=== PATIENT | female | born 1960 | race Caucasian/White ===

== ENCOUNTER 2017-02-08 03:29 | Emergency (ER) | payer OTHER ==
[2017-02-08 03:52] VITALS: BMI 37.8
[2017-02-08] MEDS ORDERED: ACETAMINOPHEN 1000 MG/100 ML VIAL (NON FORMULARY) IVPB ONE (06:21)
[2017-02-08] MEDS ORDERED: FAMOTIDINE 20 MG/50 ML IVPB 50 ML IVPB ONE ×2 (06:21→06:42)
[2017-02-08] MEDS ORDERED: SODIUM CHLORIDE 0.9% 1000 ML INFUS.BAG IV ONE (06:21)
[2017-02-08] MEDS ORDERED: ACETAMINOPHEN INJECTION 100 ML IVPB ONE (06:42)
--- NOTE | 2017-02-08 06:48 | PDOC ---
History of Present Illness - General Chief Complaint: Pain Stated Complaint: ABDOMINAL PAIN Time Seen by Provider: 02/08/17 05:59 History Source: Patient Exam Limitations: No Limitations - History of Present Illness Initial Comments: 02/08/17 06:41 Patient is a 36 y.o female with history of gastritis, arthritis, hypertension, hypothyroid, complaining of epigastric pain which radiates started at 1 AM. Pain is 10/10 gradual onset of squeezing, and intermittent, which is associatedpain finger with nausea and vomiting which started about 2 AM. Denies any history of pancreatitis. States she has a h/o ulcer which was diagnosed 4 years ago for which omeprazole was given. Last time used was 3 months ago There are no alleviating factors, (did not take any omeprazole), no aggravating factors. Had an endoscopy for vomiting blood 9 years ago with no findings. denies fever, chills, diarrhea. No fam h/o aneurysm. PMD: [facility] at [address] PMHX: as above PSochx: neg etoh, drug, cig PFamHx: noncontributory ALL: ASA GENERAL/CONSTITUTIONAL: [No fever or chills. No weakness. No weight change.] HEAD, EYES, EARS, NOSE AND THROAT: [No change in vision. No ear pain or discharge. No sore throat.] CARDIOVASCULAR: [No chest pain or shortness of breath.] RESPIRATORY: [No cough, wheezing, or hemoptysis.] GASTROINTESTINAL: (+) nausea, vomiting, (-) diarrhea or constipation. No rectal bleeding.] GENITOURINARY: [No dysuria, frequency, or change in urination.] MUSCULOSKELETAL: [No joint or muscle swelling or pain. No neck or back pain.] SKIN AND BREASTS: [No rash or easy bruising.] NEUROLOGIC: [No headache, vertigo, loss of consciousness, or loss of sensation.] PSYCHIATRIC: [No depression or anxiety.] ENDOCRINE: [No increased thirst. No abnormal weight change.] HEMATOLOGIC/LYMPHATIC: [No anemia, easy bleeding, or history of blood clots.] ALLERGIC/IMMUNOLOGIC: [No hives or skin allergy. No latex allergy.] GENERAL: [The patient is awake, alert, and fully oriented, in moderate painful distress.] HEAD: [Normal with no signs of trauma.] EYES: [Pupils equal, round and reactive to light, extraocular movements intact, sclera anicteric, conjunctiva clear.] ENT: [Ears normal, nares patent, oropharynx clear without exudates. Moist mucous membranes.] NECK: [Normal range of motion, supple without lymphadenopathy, JVD, or masses.] LUNGS: [Breath sounds equal, clear to auscultation bilaterally. No wheezes, and no crackles.] HEART: [Regular rate and rhythm, normal S1 and S2 without murmur, rub.] ABDOMEN: [Soft, (+) tenderness in the epigastrium, normoactive bowel sounds. No guarding, no rebound. No masses.] EXTREMITIES: [Normal range of motion, no edema. No clubbing or cyanosis. No cords, erythema, or tenderness.] NEUROLOGICAL: [Cranial nerves II through XII grossly intact. Normal speech, normal gait.] PSYCH: [Normal mood, normal affect.] SKIN: [Warm, Dry, normal turgor, no rashes or lesions noted.] Past History - Past Medical History Allergies/Adverse Reactions: Allergies Allergy/AdvReac Type Severity Reaction Status Date / Time aspirin AdvReac Mild Verified 02/08/17 03:53 Home Medications: Ambulatory Orders Amlodipine Besylate [Norvasc] 10 mg PO DAILY 07/11/12 Gabapentin [Neurontin] 300 mg PO TID 07/11/12 Levothyroxine [Synthroid] 88 mcg PO DAILY 07/11/12 Anemia: No Asthma: No Cancer: No HTN: Yes Thyroid Disease: Yes - Immunization History Immunization Up to Date: No - Psycho/Social/Smoking Cessation Hx Anxiety: No Suicidal Ideation: No Smoking Status: No Smoking History: Never smoked Have you smoked in the past 12 months: No Number of Cigarettes Smoked Daily: 0 Information on smoking cessation initiated: No Hx Alcohol Use: No Drug/Substance Use Hx: No Substance Use Type: None *Physical Exam - Vital Signs Last Vital Signs Temp Pulse Resp BP Pulse Ox 97.6 F 72 19 143/97 100 02/08/17 03:45 02/08/17 03:45 02/08/17 03:45 02/08/17 03:45 02/08/17 03:45 ED Treatment Course - LABORATORY CBC & Chemistry Diagram: 02/08/17 06:39 02/08/17 06:39 Medical Decision Making - Medical Decision Making 02/08/17 06:49 Patient is a 36 y.o female with history of gastritis, arthritis, hypertension, hypothyroid, complaining of epigastric pain which radiates started at 1 AM. DDx incl but not limited to pancreatitis, gastritis, gastric ulcers, IN will get labs including trop, EKG IV fluids, morphine 2 mg IV, Pepcid 20 mg IV, Zofran 4 mg IV. Will endorse to HOLGER Lui pending labs and disposition. *DC/Admit/Observation/Transfer Diagnosis at time of Disposition: Epigastric pain - Discharge Dispostion Condition at time of disposition: Fair
[2017-02-08 06:51] LABS: BASOPHIL 0.4 % (0-2.0); EOSINOPHIL 0.3 % (0-4.5); MCH 27.9 pg (25.7-33.7); MCHC 32.4 g/dl (32.0-36.0); MEAN PLT VOLUME 10.2 fl (7.5-11.1); NEUTROPHILS 79.1 % (42.8-82.8); PLATELET COUNT 180 K/MM3 (134-434); RDW 15.7 % (11.6-15.6); WHITE BLOOD COUNT 10.5 K/mm3 (4.0-10.0)
[2017-02-08 07:07] LABS: ALBUMIN 3.8 g/dl (3.4-5.0); ANION GAP 8 (8-16); CALCIUM 9.3 mg/dL (8.5-10.1); CO2 26 mmol/L (21-32); COCKROFT - GAULT 141.355; CREATININE 0.7 mg/dL (0.55-1.02); GLUCOSE,RANDOM 109 mg/dL (74-106); SGOT/AST 33 U/L (15-37); SGPT/ALT 25 U/L (12-78)
[2017-02-08 07:09] LABS: ALK PHOS 114 U/L (45-117); BILIRUBIN,TOTAL 0.3 mg/dL (0.2-1.0); TOT PROT 7.8 g/dl (6.4-8.2)
--- NOTE | 2017-02-08 07:41 | PDOC ---
*Physical Exam - Vital Signs Last Vital Signs Temp Pulse Resp BP Pulse Ox 98.0 F 61 16 158/75 100 02/08/17 07:37 02/08/17 07:37 02/08/17 07:37 02/08/17 07:37 02/08/17 07:37 Heart Score/ECG Review - ECG Intrepretation Rhythm: Regular Rhythm (sinus bradycardia. left atrial enlargement. LVH) ED Treatment Course - LABORATORY CBC & Chemistry Diagram: 02/08/17 06:39 02/08/17 06:39 - ADDITIONAL ORDERS Additional order review: Laboratory Results 02/08/17 06:39 Sodium 143 Potassium 3.5 Chloride 109 H Carbon Dioxide 26 Anion Gap 8 BUN 17 Creatinine 0.7 D Creat Clearance w eGFR > 60 Random Glucose 109 H D Calcium 9.3 Total Bilirubin 0.3 D AST 33 D ALT 25 Alkaline Phosphatase 114 Total Protein 7.8 Albumin 3.8 Lipase 161 02/08/17 06:39 RBC 4.32 MCV 86.0 MCHC 32.4 RDW 15.7 H MPV 10.2 Neutrophils % 79.1 D Lymphocytes % 15.1 D Monocytes % 5.1 Eosinophils % 0.3 Basophils % 0.4 - Medications Given in the ED: ED Medications Discontinued Medications Generic Name Dose Route Start Last Admin Trade Name Freq PRN Reason Stop Dose Admin Acetaminophen 1,000 mg 02/08/17 06:21 02/08/17 06:45 Ofirmev Injection - IVPB 02/08/17 06:22 1,000 mg ONCE ONE Administration Famotidine/Sodium Chloride 50 mls @ 100 mls/hr 02/08/17 06:21 02/08/17 06:46 Pepcid 20 Mg Premixed Ivpb - IVPB 02/08/17 06:50 100 mls/hr ONCE ONE Administration Sodium Chloride 1,000 ml 02/08/17 06:21 02/08/17 06:41 Normal Saline - IV 02/08/17 06:22 1,000 ml ONCE ONE Administration Medical Decision Making - Medical Decision Making 02/08/17 07:41 Patient received in sign out with complaints of epigastric pain associated with nausea that began this morning. Patient states history of PUD and gastritis and supposed take Prilosec as needed which she states did not take when symptoms began and came to the ER for further evaluation. Patient denies chest pain, shortness of breath, cough, fever, chills, vomiting, diarrhea or constipation. Patient denies alcohol intake, history of pancreatitis, or history of gallstones. Patient pending labs and states is feeling better after receiving Pepcid 02/08/17 08:05 Laboratory Tests 02/08/17 06:39 Creatine Kinase 172 Troponin I < 0.02 Patient will be discharged home to continue taking her Prilosec. Patient to follow-up with her PCP and stator tester *DC/Admit/Observation/Transfer Diagnosis at time of Disposition: Epigastric pain - Discharge Dispostion Disposition: HOME Condition at time of disposition: Improved - Referrals Referrals: STAFF,NOT ON [Primary Care Provider] - - Patient Instructions Printed Discharge Instructions: DI for Epigastric Pain Additional Instructions: Please take your Prilosec daily and to follow-up with your PCP and/or your stator tester. Please return to ED if symptoms worsen. Otherwise avoid spicy greasy food and drink plenty of fluids - Post Discharge Activity
[2017-02-08 07:53] LABS: TROPONIN I < 0.02 ng/ml (0.00-0.05)
[2017-02-08 08:47] VITALS: BP 134/78; PULSE 76; TEMP 98.1
--- NOTE | 2017-02-08 13:29 | EKG ---
Test Reason : Blood Pressure : / mmHG Vent. Rate : 056 BPM Atrial Rate : 056 BPM P-R Int : 150 ms QRS Dur : 088 ms QT Int : 452 ms P-R-T Axes : 061 -05 019 degrees QTc Int : 436 ms SINUS BRADYCARDIA POSSIBLE LEFT ATRIAL ENLARGEMENT LEFT VENTRICULAR HYPERTROPHY ABNORMAL ECG WHEN COMPARED WITH ECG OF 01-MAR-2013 13:51, NO SIGNIFICANT CHANGE WAS FOUND Confirmed by MARYLU ANTON MD ([id number]) on 02/08/2017 1:28:49 PM Referred By: Confirmed By:MARYLU ANTON MD
== END 2017-02-08 08:36 | disposition home or self-care (01) ==
LOC: JER 03:29 → SUPCPDRO 03:29 → JER 08:36
PROC: 3E033GC Introduction of Other Therapeutic Substance into Peripheral Vein, Percutaneous Approach (ICD-10-PCS; principal; 2017-02-08)
DX: R10.13 Epigastric pain (principal); I10 Essential (primary) hypertension; E03.9 Hypothyroidism, unspecified; M12.9 Arthropathy, unspecified
CPT/HCPCS: 36415; 80053; 82550; 82553; 83690; 84484; 85025; 93005; 93010; 96365; 96375; 99284-25

== ENCOUNTER 2017-11-07 01:52 | Inpatient (IN) | payer OTHER ==
[2017-11-07] MEDS ORDERED: SODIUM CHLORIDE 500 ML IV STA ×2 (02:53→07:44)
--- NOTE | 2017-11-07 02:53 | PDOC ---
History of Present Illness - General Chief Complaint: Pain, Acute Stated Complaint: R SIDED ABD PAIN Time Seen by Provider: 11/07/17 02:25 History Source: Patient, Other (daughter) Exam Limitations: No Limitations - History of Present Illness Travel History: No Initial Comments: 11/07/17 02:51 57-year-old female with a history of hypertension, ulcers, hypothyroidism presents to the emergency department with her daughter who is also translating in [place]ese. Patient's complaining of right upper quadrant abdominal pain 2 hours. Pain is described as 8/10 sharp nonradiating intermittent discomfort which is exacerbated on movement and touch and there are no alleviating factors. Patient denies fever, chills, nausea/vomiting, neck/back pains, chest pain, shortness of breath, flank pains, urinary symptoms. Abdominal Pain Onset Location: reports: RUQ Activities at Onset: denies: none Past History - Past Medical History Allergies/Adverse Reactions: Allergies Allergy/AdvReac Type Severity Reaction Status Date / Time aspirin AdvReac Mild Verified 11/07/17 02:30 Home Medications: Ambulatory Orders Amlodipine Besylate [Norvasc] 10 mg PO DAILY 07/11/12 Gabapentin [Neurontin] 300 mg PO TID 07/11/12 Levothyroxine [Synthroid] 88 mcg PO DAILY 07/11/12 Anemia: No Asthma: No Cancer: No HTN: Yes Thyroid Disease: Yes - Immunization History Immunization Up to Date: No - Suicide/Smoking/Psychosocial Hx Smoking Status: No Smoking History: Never smoked Have you smoked in the past 12 months: No Number of Cigarettes Smoked Daily: 0 Information on smoking cessation initiated: No Hx Alcohol Use: No Drug/Substance Use Hx: No Substance Use Type: None Review of Systems - Review of Systems Able to Perform ROS?: Yes Comments:: 11/07/17 02:52 CONSTITUTIONAL: Absent: fever, chills, diaphoresis, generalized weakness, malaise, loss of appetite HEENT: Absent: rhinorrhea, nasal congestion, throat pain, throat swelling, difficulty swallowing, mouth swelling, ear pain, eye pain, visual Changes CARDIOVASCULAR: Absent: chest pain, loss of consciousness, palpitations, irregular heart rate, peripheral edema RESPIRATORY: Absent: cough, shortness of breath, dyspnea with exertion, orthopnea, wheezing, stridor, hemoptysis GASTROINTESTINAL: +RUQ pain Absent:abdominal distension, nausea, vomiting, diarrhea, constipation, melena, hematochezia GENITOURINARY: Absent: dysuria, frequency, urgency, hesitancy, hematuria, flank pain, genital pain MUSCULOSKELETAL: Absent: myalgia, arthralgia, joint swelling SKIN: Absent: rash, itching, pallor Is the patient limited [place] proficient: No *Physical Exam - Vital Signs Last Vital Signs Temp Pulse Resp BP Pulse Ox 97.9 F 75 16 119/85 100 11/07/17 02:27 11/07/17 02:27 11/07/17 02:27 11/07/17 02:27 11/07/17 02:27 - Physical Exam Comments: 11/07/17 02:52 GENERAL: Well developed, well nourished. Awake and alert. No acute distress. HEENT: Normocephalic, atraumatic. PERRLA, EOMI. No conjunctival pallor. Sclera are non- icteric. Moist mucous membranes. Oropharynx is clear. NECK: Supple. Full ROM. No JVD. Carotid pulses 2+ and symmetric, without bruits. No thyromegaly. No lymphadenopathy. CARDIOVASCULAR: Regular rate and rhythm. No murmurs, rubs, or gallops. Distal pulses are 2+ and symmetric. PULMONARY: No evidence of respiratory distress. Lungs clear to auscultation bilaterally. No wheezing, rales or rhonchi. ABDOMINAL: +RUQ pain Soft. Non-distended. No rebound or guarding. No organomegaly. Normoactive bowel sounds. MUSCULOSKELETAL Normal range of motion at all joints. No bony deformities or tenderness. No CVA tenderness. EXTREMITIES: No cyanosis. No clubbing. No edema. No calf tenderness. SKIN: Warm and dry. Normal capillary refill. No rashes. No jaundice. ED Treatment Course - LABORATORY CBC & Chemistry Diagram: 11/07/17 02:59 11/07/17 02:59 - RADIOLOGY Radiograph Interpretation: 11/07/17 02:53 CT abd/pelvis iv and po contrast: Acute cholecystitis without biliary duct dilatation *DC/Admit/Observation/Transfer Diagnosis at time of Disposition: Acute cholecystitis - Discharge Dispostion Condition at time of disposition: Stable - Referrals - Patient Instructions - Post Discharge Activity
[2017-11-07] MEDS ORDERED: HYDROmorphone HCL CARPU-JECT 1 MG/1 ML DISP.SYRIN IVPUSH ONE (03:03)
[2017-11-07] MEDS ORDERED: ONDANSETRON 4 MG/2 ML VIAL IVPUSH ONE (03:04)
[2017-11-07] MEDS ORDERED: HYDROmorphone HCL CARPU-JECT 2 MG/1 ML DISP.SYRIN ONE (03:06)
[2017-11-07] MEDS ORDERED: METOCLOPRAMIDE HCL INJECTION 10 MG/2 ML VIAL ONE (03:07)
[2017-11-07 03:11] LABS: BASO % 0.7 % (0-2.0); EOS % 0.5 % (0-4.5); HEMATOCRIT 40.4 % (32.4-45.2); LYMPH % 11.7 % (8-40); MCH 27.6 pg (25.7-33.7); MCHC 32.1 g/dl (32.0-36.0); MEAN CELL VOLUME 86.1 fl (80-96); MEAN PLT VOLUME 9.6 fl (7.5-11.1); MONO % 7.4 % (3.8-10.2); NEUT % 79.7 % (42.8-82.8); PLATELET COUNT 211 K/MM3 (134-434); RBC 4.69 M/mm3 (3.60-5.2); RDW 15.8 % (11.6-15.6); WHITE BLOOD COUNT 13.6 K/mm3 (4.0-10.0)
[2017-11-07] MEDS ORDERED: METOCLOPRAMIDE HCL INJECTION 10 MG/2 ML VIAL IVPB ONE (03:31)
[2017-11-07 03:44] LABS: URINE APPEARANCE CLEAR; URINE BILIRUBIN NEGATIVE (NEGATIVE); URINE BLOOD NEGATIVE (NEGATIVE); URINE COLOR STRAW; URINE GLUCOSE (UA) NEGATIVE (NEGATIVE); URINE KETONE 1+ (NEGATIVE); URINE LEUK ESTERASE NEGATIVE (NEGATIVE); URINE NITRITE NEGATIVE (NEGATIVE); URINE PROTEIN NEGATIVE (NEGATIVE); URINE UROBILINOGEN NEGATIVE mg/dL (0.2-1.0)
[2017-11-07 03:44] LABS: ALBUMIN 4.2 g/dl (3.4-5.0); ALK PHOS 148 U/L (45-117); AMYLASE 100 U/L (25-115); ANION GAP 10 (8-16); BILIRUBIN,TOTAL 0.7 mg/dL (0.2-1.0); BLOOD UREA NITROGEN 17 mg/dL (7-18); CALCIUM 9.9 mg/dL (8.5-10.1); CHLORIDE 105 mmol/L (98-107); CO2 26 mmol/L (21-32); CREATININE 0.7 mg/dL (0.55-1.02); GLUCOSE,RANDOM 99 mg/dL (74-106); POTASSIUM 3.8 mmol/L (3.5-5.1); SGOT/AST 131 U/L (15-37); SGPT/ALT 66 U/L (12-78); SODIUM 141 mmol/L (136-145); TOT PROT 8.7 g/dl (6.4-8.2)
[2017-11-07 03:45] LABS: LIPASE 236 U/L (73-393)
[2017-11-07] MEDS ORDERED: CEFTRIAXONE 1 GM in DEXTROSE 5%-WATER - 50 ML IVPB ONE (07:34)
--- NOTE | 2017-11-07 08:03 | PDOC ---
*Physical Exam - Vital Signs Last Vital Signs Temp Pulse Resp BP Pulse Ox 98.3 F 62 16 167/89 97 11/07/17 07:12 11/07/17 07:12 11/07/17 07:12 11/07/17 07:12 11/07/17 07:12 ED Treatment Course - LABORATORY CBC & Chemistry Diagram: 11/07/17 02:59 11/07/17 02:59 - ADDITIONAL ORDERS Additional order review: Laboratory Results 11/07/17 11/07/17 03:38 02:59 Sodium 141 Potassium 3.8 Chloride 105 Carbon Dioxide 26 Anion Gap 10 BUN 17 Creatinine 0.7 Creat Clearance w eGFR > 60 Random Glucose 99 Calcium 9.9 Total Bilirubin 0.7 D AST 131 H ALT 66 Alkaline Phosphatase 148 H Total Protein 8.7 H Albumin 4.2 Total Amylase 100 Lipase 236 Urine Color Straw Urine Appearance Clear Urine pH 9.0 H Ur Specific [place] 1.012 Urine Protein Negative Urine Glucose (UA) Negative Urine Ketones 1+ H Urine Blood Negative Urine Nitrite Negative Urine Bilirubin Negative Urine Urobilinogen Negative Ur Leukocyte Esterase Negative 11/07/17 02:59 RBC 4.69 MCV 86.1 MCHC 32.1 RDW 15.8 H MPV 9.6 Neutrophils % 79.7 Lymphocytes % 11.7 D Monocytes % 7.4 Eosinophils % 0.5 Basophils % 0.7 - Medications Given in the ED: ED Medications Discontinued Medications Generic Name Dose Route Start Last Admin Trade Name Freq PRN Reason Stop Dose Admin Hydromorphone HCl 1 mg 11/07/17 03:03 11/07/17 03:07 Dilaudid Injection - IVPUSH 11/07/17 03:04 1 mg ONCE ONE Administration Sodium Chloride 500 mls @ 500 mls/hr 11/07/17 02:53 11/07/17 03:30 Normal Saline - IV 11/07/17 03:52 500 mls/hr ASDIR STA Administration Metoclopramide HCl 10 mg 11/07/17 03:31 11/07/17 03:31 Reglan Injection - IVPB 11/07/17 03:32 10 mg NOW ONE Administration Ondansetron HCl 4 mg 11/07/17 03:04 11/07/17 03:32 Zofran Injection IVPUSH 11/07/17 03:05 Not Given ONCE ONE Medical Decision Making - Medical Decision Making 11/07/17 08:02 Patient received in sign out from SITA Clay. Patient to be admitted for cholecystitis. Case discussed with hospitalist. patient to be admitted to [facility]. Nothing by mouth status maintained. Preoperative antibiotics on patient awaiting chest x-ray EKG. *DC/Admit/Observation/Transfer Diagnosis at time of Disposition: Acute cholecystitis - Discharge Dispostion Condition at time of disposition: Stable Admit: Yes - Referrals - Patient Instructions - Post Discharge Activity
--- NOTE | 2017-11-07 08:12 | HP ---
Admitting History and Physical - Primary Care Physician PCP: Narciso Moncada - Admission Chief Complaint: abdominal pain History of Present Illness: This is a 57 year old female with pmhx of HTN, hypothyroidism who presented to the ED with acute right upper quadrant pain and associated nausea referring to RLE. This is the patients fourth episode of this acute abdominal pain. Pt did not vomit, she saw her pcp recently who mentioned the abdominal pain could be her gallbladder, prior to that she was never told it was that. Daughter at bedside translating. Currently, denies pain, fever, chills, recent illness, chest pain, sob. History Source: Patient, Family Member - Past Medical History Cardiovascular: Yes: HTN Endocrine: Yes: Hypothyroidism - Past Surgical History Additional Past Surgical History: Lower back herniated disc repair at [facility] 5 years ago - Smoking History Smoking history: Never smoked Have you smoked in the past 12 months: No Aproximately how many cigarettes per day: 0 - Alcohol/Substance Use Hx Alcohol Use: No History of Substance Use: reports: None - Social History Usual Living Arrangement: Yes: With Child ADL: Independent Occupation: does not work History of Recent Travel: No Home Medications - Allergies Allergies/Adverse Reactions: Allergies Allergy/AdvReac Type Severity Reaction Status Date / Time aspirin AdvReac Mild Verified 11/07/17 02:30 - Home Medications Home Medications: Ambulatory Orders Amlodipine Besylate [Norvasc] 10 mg PO DAILY 07/11/12 Acetaminophen [Pain Relief] 650 mg PO Q8H PRN 11/07/17 Levothyroxine [Synthroid -] 125 mcg PO DAILY 11/07/17 Review of Systems - Review of Systems Constitutional: reports: No Symptoms Eyes: reports: No Symptoms HENT: reports: No Symptoms Neck: reports: No Symptoms Cardiovascular: reports: No Symptoms Respiratory: reports: No Symptoms Gastrointestinal: reports: Abdominal Pain, Nausea Genitourinary: reports: No Symptoms Musculoskeletal: reports: No Symptoms Integumentary: reports: No Symptoms Neurological: reports: No Symptoms Endocrine: reports: No Symptoms Hematology/Lymphatic: reports: No Symptoms Psychiatric: reports: No Symptoms Physical Examination Vital Signs: Vital Signs Temperature 98.3 F 11/07/17 07:12 Pulse Rate 62 11/07/17 07:12 Respiratory Rate 16 11/07/17 07:12 Blood Pressure 167/89 11/07/17 07:12 O2 Sat by Pulse Oximetry (%) 97 11/07/17 07:12 Constitutional: Yes: Well Nourished Eyes: Yes: Conjunctiva Clear HENT: Yes: Atraumatic Neck: Yes: Supple Cardiovascular: Yes: Regular Rate and Rhythm, S1, S2 Respiratory: Yes: Regular, CTA Bilaterally Gastrointestinal: Yes: Normal Bowel Sounds, Soft Musculoskeletal: Yes: WNL Extremities: Yes: WNL Edema: No Neurological: Yes: Alert, Oriented, Cran Nerves II-XII Intact Labs: CBC, BMP 11/07/17 02:59 11/07/17 02:59 Imaging - Results Cat Scan: Pending Problem List - Problems (1) Acute cholecystitis Code(s): K81.0 - ACUTE CHOLECYSTITIS (2) Epigastric pain Code(s): R10.13 - EPIGASTRIC PAIN Assessment/Plan Assessment: 57 year old female with htn, hypothyroidism admitted with abdominal pain Plan: 1. Acute cholecystitis - NPO - CTAP done report pending - CXR and EKG ordered - For cholecystectomy tomorrow with Dr. Arredondo - Continue IVF - Continue ceftriaxone, flagyl 2. HTN - Elevated this AM, however morning med not given - Continue norvasc 10mg daily 3. Hypothyroid - Continue synthroid 88mcg daily 4. DVT - SCDs Visit type - Emergency Visit Emergency Visit: Yes ED Registration Date: 11/07/17 Care time: The patient presented to the Emergency Department on the above date and was hospitalized for further evaluation of their emergent condition. - New Patient This patient is new to me today: Yes Date on this admission: 11/07/17 - Critical Care Critical Care patient: No
[2017-11-07] MEDS ORDERED: cefTRIAXone SODIUM 1 GM VIAL ONE (09:00)
[2017-11-07] MEDS ORDERED: LEVOTHYROXINE NA 88 MCG TABLET (FP) PO SCH (10:00)
[2017-11-07] MEDS: SODIUM CHLORIDE 0.45% 1,000 ML IV SCH (10:03)
[2017-11-07] MEDS: amLODIPine BESYLATE 10 MG TABLET (FP) PO SCH (10:15)
[2017-11-07] MEDS ORDERED: amLODIPine BESYLATE 5 MG TABLET (FP) ONE (10:17)
--- NOTE | 2017-11-07 12:14 | EKG ---
Test Reason : Blood Pressure : / mmHG Vent. Rate : 057 BPM Atrial Rate : 057 BPM P-R Int : 152 ms QRS Dur : 092 ms QT Int : 440 ms P-R-T Axes : 055 -05 024 degrees QTc Int : 428 ms SINUS BRADYCARDIA MINIMAL VOLTAGE CRITERIA FOR LVH, MAY BE NORMAL VARIANT BORDERLINE ECG WHEN COMPARED WITH ECG OF 08-FEB-2017 07:17, NO SIGNIFICANT CHANGE WAS FOUND BASELINE ARTIFACT Confirmed by RENALDO ROMERO, REJI ([id number]) on 11/07/2017 12:14:19 PM Referred By: Confirmed By:REJI MACARIO MD
--- NOTE | 2017-11-07 13:56 | CONSULT ---
- Consultation REQUESTING PROVIDER: Jose SILK SCREEN CUTTER CONSULT REQUEST: We have been asked to surgically evaluate this patient for tx. of acute cholecystitis/cholelithiasis PCP:Bridget Garcia HISTORY OF PRESENT ILLNESS: 57 y/o female presented w/ # days of n/v/ RUQ pain which she has never had before; w/u is c/w acute cholecystitis/ cholelithiasis; she has no other GI//EMERGENCY SERVICES DISPATCHER c/o. PMHx: hypertensiom, hypothyroid PSHx: none Home Medications Medication Instructions Recorded Amlodipine Besylate [Norvasc] 10 mg PO DAILY 07/11/12 Gabapentin [Neurontin] 300 mg PO TID 07/11/12 Levothyroxine [Synthroid] 88 mcg PO DAILY 07/11/12 Allergies Allergy/AdvReac Type Severity Reaction Status Date / Time aspirin AdvReac Mild Verified 11/07/17 02:30 PHYSICAL EXAM: GENERAL: Awake, alert, and fully oriented, in no acute distress; interviewed in [place]. HEAD: Normal with no signs of trauma. EYES sclera anicteric, conjunctiva clear. NECK: Normal ROM, supple without lymphadenopathy, JVD, or masses. ABDOMEN: Soft, tender RUQ, not distended, normoactive bowel sounds, no guarding , no rebound, no masses. No organomegaly. No hernias; no scars MUSCULOSKELETAL: Normal ROM at all joints. No bony deformities or tenderness. No CVA tenderness. UPPER EXTREMITIES: 2+ pulses, warm, well-perfused. No cyanosis. Cap refill <2 seconds. No peripheral edema. LOWER EXTREMITIES: 2+ pulses, warm, well-perfused. No calf tenderness. No peripheral edema. NEUROLOGICAL: Normal speech, gait not observed. PSYCH: Cooperative in [place]. Good eye contact. Appropriate mood and affect. SKIN: Warm, dry, normal turgor, no rashes or lesions noted. Vital Signs Temperature 97.6 F 11/07/17 10:10 Pulse Rate 60 11/07/17 10:10 Respiratory Rate 16 11/07/17 10:10 Blood Pressure 181/87 11/07/17 10:10 O2 Sat by Pulse Oximetry (%) 100 11/07/17 10:10 Lab Results WBC 13.6 K/mm3 (4.0-10.0) H 11/07/17 02:59 RBC 4.69 M/mm3 (3.60-5.2) 11/07/17 02:59 Hgb 13.0 GM/dL (10.7-15.3) 11/07/17 02:59 Hct 40.4 % (32.4-45.2) 11/07/17 02:59 MCV 86.1 fl (80-96) 11/07/17 02:59 MCHC 32.1 g/dl (32.0-36.0) 11/07/17 02:59 RDW 15.8 % (11.6-15.6) H 11/07/17 02:59 Plt Count 211 K/MM3 (134-434) 11/07/17 02:59 Sodium 141 mmol/L (136-145) 11/07/17 02:59 Potassium 3.8 mmol/L (3.5-5.1) 11/07/17 02:59 Chloride 105 mmol/L (98-107) 11/07/17 02:59 Carbon Dioxide 26 mmol/L (21-32) 11/07/17 02:59 Anion Gap 10 (8-16) 11/07/17 02:59 BUN 17 mg/dL (7-18) 11/07/17 02:59 Creatinine 0.7 mg/dL (0.55-1.02) 11/07/17 02:59 Random Glucose 99 mg/dL (74-106) 11/07/17 02:59 Calcium 9.9 mg/dL (8.5-10.1) 11/07/17 02:59 CT a/p c/w acute cholelcystits/cholelithiasis; US results pending; labs note IMP: acute cholecystitis/cholelithiasis PLAN: Admit/NPO/IVF/IVABS/US/lap [place] possible open 11/08/17; r/b/t/a's d/w the patient in [place] including possible conversion to an open procedure Yair Arredondo MD FACS. Visit type - Case Type Case Type: ED Admission - Emergency Emergency Visit: Yes ED Registration Date: 11/07/17 Care time: The patient presented to the Emergency Department on the above date and was hospitalized for further evaluation of their emergent condition. - New patient This patient is new to me today: Yes Date on this admission: 11/08/17 - Critical Care Critical Care patient: No
[2017-11-07 15:16] VITALS: BMI 38.4
[2017-11-07] MEDS: GABAPENTIN 300 MG CAPSULE (FP) PO SCH ×2 (15:54→22:16)
[2017-11-07] MEDS ORDERED: MORPHINE SULFATE 10 MG/1 ML *VIAL IVPUSH PRN (17:27)
[2017-11-08] MEDS: GABAPENTIN 300 MG CAPSULE (FP) PO SCH ×3 (06:02→22:01)
[2017-11-08] MEDS: SODIUM CHLORIDE 0.45% 1,000 ML IV SCH ×2 (07:03→15:32)
[2017-11-08 07:18] LABS: BASO % 0.5 % (0-2.0); EOS % 2.9 % (0-4.5); HEMOGLOBIN 12.5 GM/dL (10.7-15.3); LYMPH % 24.5 % (8-40); MCH 28.4 pg (25.7-33.7); MEAN CELL VOLUME 86.1 fl (80-96); MEAN PLT VOLUME 9.7 fl (7.5-11.1); MONO % 9.8 % (3.8-10.2); NEUT % 62.3 % (42.8-82.8); PLATELET COUNT 211 K/MM3 (134-434); RBC 4.41 M/mm3 (3.60-5.2); RDW 15.7 % (11.6-15.6); WHITE BLOOD COUNT 6.4 K/mm3 (4.0-10.0)
[2017-11-08 07:38] LABS: ALBUMIN 3.7 g/dl (3.4-5.0); ANION GAP 10 (8-16); BLOOD UREA NITROGEN 9 mg/dL (7-18); CALCIUM 9.5 mg/dL (8.5-10.1); CHLORIDE 105 mmol/L (98-107); CO2 26 mmol/L (21-32); GLUCOSE,RANDOM 78 mg/dL (74-106); MAGNESIUM 2.2 mg/dL (1.8-2.4); PHOSPHOROUS 3.3 mg/dL (2.5-4.9); POTASSIUM 3.4 mmol/L (3.5-5.1); SGOT/AST 58 U/L (15-37); SGPT/ALT 72 U/L (12-78); SODIUM 141 mmol/L (136-145)
[2017-11-08 07:43] LABS: ALK PHOS 125 U/L (45-117); BILIRUBIN,TOTAL 0.7 mg/dL (0.2-1.0); CREATININE 0.5 mg/dL (0.55-1.02); TOT PROT 7.5 g/dl (6.4-8.2)
[2017-11-08] MEDS ORDERED: POTASSIUM CHLORIDE 10 MEQ in SODIUM CHLORIDE 100 ML IVPB SCH (09:00)
[2017-11-08] MEDS: amLODIPine BESYLATE 10 MG TABLET (FP) PO SCH (09:20)
[2017-11-08] MEDS ORDERED: CEFTRIAXONE 1 G/50 ML PREMIX 50 ML IVPB SCH (10:00)
[2017-11-08] MEDS ORDERED: LEVOTHYROXINE NA 88 MCG TABLET (FP) PO SCH (10:00)
[2017-11-08] MEDS ORDERED: BUPIVACAINE HCL/PF 0.5% (5MG/ML) 10 ML VIAL ONE (10:16)
[2017-11-08] MEDS ORDERED: fentaNYL CITRATE 250 MCG/5 ML VIAL ONE (10:33)
[2017-11-08] MEDS ORDERED: MIDAZOLAM HCL 2 MG/2 ML SINGLE DOSE VIAL ONE (10:34)
[2017-11-08] MEDS ORDERED: PROPOFOL 20 ML ONE (10:34)
[2017-11-08] MEDS ORDERED: ROCURONIUM BROMIDE 50 MG/5 ML VIAL ONE (10:51)
[2017-11-08] MEDS ORDERED: DEXAMETHASONE SOD PHOSPHATE 4 MG/1 ML VIAL ONE (11:17)
[2017-11-08] MEDS ORDERED: ePHEDrine SULFATE 50 MG/1 ML AMPULE ONE (11:42)
[2017-11-08] MEDS ORDERED: NEOSTIGMINE METHYLSULFATE 0.5 MG/ML - 10 ML MDV ONE (12:13)
[2017-11-08] MEDS ORDERED: GLYCOPYRROLATE 0.2 MG/1 ML VIAL ONE (12:13)
--- NOTE | 2017-11-08 12:21 | OP ---
Operative Note - Note: Operative Date: 11/08/17 Pre-Operative Diagnosis: acute cholecystitis/cholelithiasis Operation: laparoscopic cholecystectomy Findings: acute cholelcystitis/cholelithiasis Post-Operative Diagnosis: Same as Pre-op Surgeon: Yair Arredondo Circuit Clerk: Mary Anne Robertson Anesthesia: General Specimens Removed: gallbladder and contents Estimated Blood Loss (mls): 20
[2017-11-08] MEDS ORDERED: BUPIVACAINE HCL/PF 0.5% (5MG/ML) 10 ML VIAL IJ ONE ×2 (12:25)
[2017-11-08] MEDS ORDERED: oxyCODONE HCL 5 MG TABLET PO PRN ×2 (12:56→12:57)
--- NOTE | 2017-11-08 13:05 | SURG ---
Surgery Blocker And Polisher Note Blocker And Polisher: Mary Anne Robertson PA-C Date of Service: 11/08/17 Diagnosis: acute cholecystitis, cholelithiasis Procedure: laparoscopic cholecystectomy I was present for the entirety of the operative procedure. For further detail, please refer to operative report. Visit type - Case Type Case Type: ED Admission - Emergency Emergency Visit: Yes ED Registration Date: 11/07/17 Care time: The patient presented to the Emergency Department on the above date and was hospitalized for further evaluation of their emergent condition. - New patient This patient is new to me today: Yes Date on this admission: 11/08/17
[2017-11-08] MEDS ORDERED: ONDANSETRON 4 MG/2 ML VIAL IVPUSH PRN (13:16)
[2017-11-08] MEDS ORDERED: ACETAMINOPHEN 325 MG TABLET (FP) PO PRN (13:16)
[2017-11-08] MEDS ORDERED: HYDROmorphone HCL CARPU-JECT 1 MG/1 ML DISP.SYRIN IVPUSH PRN (13:16)
[2017-11-08] MEDS ORDERED: HYDROmorphone HCL CARPU-JECT 2 MG/1 ML DISP.SYRIN IVPUSH ONE ×2 (13:35→13:45)
[2017-11-08] MEDS ORDERED: HYDROmorphone HCL CARPU-JECT 2 MG/1 ML DISP.SYRIN ONE (14:03)
[2017-11-08] MEDS: SODIUM CHLORIDE 1,000 ML IV SCH ×2 (15:21→23:46)
[2017-11-08] MEDS: LACTATED RINGERS SOLUTION 1,000 ML IV SCH (15:53)
[2017-11-08] MEDS: HEPARIN NA (PORCINE) 5,000 UNITS/ML 1ML VIAL SQ SCH ×2 (16:08→22:01)
--- NOTE | 2017-11-08 17:13 | PN ---
Physical Exam: SUBJECTIVE: Patient seen and examined at the bedside. She is s/p lap urban, denies pain, denies shortness of breath. OBJECTIVE: Period Temp Pulse Resp BP Sys/Baker Pulse Ox Last 24 Hr 97.6 F-98.6 F 52-82 16-20 120-142/53-75 94-100 GENERAL: The patient is awake, alert, and fully oriented, in no acute distress. HEAD: Normal with no signs of trauma. EYES: PERRL, extraocular movements intact, sclera anicteric, conjunctiva clear. No ptosis. ENT: Ears normal, nares patent, oropharynx clear without exudates, moist mucous membranes. NECK: Trachea midline, full range of motion, supple. LUNGS: Breath sounds equal, clear to auscultation bilaterally, no wheezes, no crackles, no accessory muscle use. ABDOMEN: Soft, nontender, nondistended, s/p laparoscopic cholecystectomy EXTREMITIES: no edema. NEUROLOGICAL: Normal speech, gait not observed. PSYCH: Normal mood, normal affect. Laboratory Results - last 24 hr 11/08/17 11/08/17 05:56 05:56 WBC 6.4 D RBC 4.41 Hgb 12.5 Hct 38.0 MCV 86.1 MCH 28.4 MCHC 33.0 RDW 15.7 H Plt Count 211 MPV 9.7 Neutrophils % 62.3 D Lymphocytes % 24.5 D Monocytes % 9.8 Eosinophils % 2.9 D Basophils % 0.5 Sodium 141 Potassium 3.4 L Chloride 105 Carbon Dioxide 26 Anion Gap 10 BUN 9 Creatinine 0.5 L Creat Clearance w eGFR > 60 Random Glucose 78 Calcium 9.5 Phosphorus 3.3 Magnesium 2.2 Total Bilirubin 0.7 AST 58 H ALT 72 Alkaline Phosphatase 125 H Total Protein 7.5 Albumin 3.7 Active Medications Generic Name Dose Route Start Last Admin Trade Name Freq PRN Reason Stop Dose Admin Acetaminophen 650 mg 11/08/17 13:16 Tylenol - PO Q6H PRN FEVER Amlodipine Besylate 10 mg 11/09/17 10:00 Norvasc - PO DAILY SIMA Gabapentin 300 mg 11/08/17 14:00 11/08/17 16:08 Neurontin - PO 300 mg TID SIMA Administration Heparin Sodium (Porcine) 5,000 unit 11/08/17 14:00 11/08/17 16:08 Heparin - SQ 5,000 unit TID SIMA Administration Hydromorphone HCl 0.5 mg 11/08/17 13:16 Dilaudid Injection - IVPUSH [id number] PRN PAIN-PACU ORDER X 4 DOSES ONLY Sodium Chloride 1,000 mls @ 75 mls/hr 11/08/17 13:00 11/08/17 15:21 Normal Saline - IV 75 mls/hr ASDIR SIMA Administration Lactated Ringer's 1,000 mls @ 125 mls/hr 11/08/17 13:30 11/08/17 15:53 Lactated Ringers Solution IV Not Given ASDIR SIMA Levothyroxine Sodium 88 mcg 11/09/17 07:00 Synthroid - PO DAILY@0700 SIMA Ondansetron HCl 4 mg 11/08/17 13:16 Zofran Injection IVPUSH Q6H PRN NAUSEA AND/OR VOMITING Oxycodone HCl 5 mg 11/08/17 12:56 Roxicodone - PO Q4H PRN PAIN LEVEL 1-5 Oxycodone HCl 10 mg 11/08/17 12:57 Roxicodone - PO Q4H PRN PAIN LEVEL 6-10 ASSESSMENT/PLAN: Patient is a 57 year old female with a significant past medical history of hypertension and hypothyroidism. She presents to the ED on 11/07/2017 with acute right upper quadrant pain and associated nausea. A CT scan of abdomen shows likely small right hepatic lobe cyst measuring 1.2 cm. Slightly over distended gallbladder with a stone adjacent to the level of the neck measuring 1.8 cm with suggestion of acute cholecystitis. GI: Acute cholecystitis s/p laparoscopic cholecystectomy today Monitor post op Dilaudid 0.5mg prn on LR @ 125cc/hr Jose prn NS @ 75cc/hr Regular diet Cardiology: Hypertension, controlled On Norvasc 10mg daily Monitor BP Endocrine: Hypothyroidism On Synthroid 88mcgs daily F.E.N. Fluids: LR 125cc/hr Electrolytes: monitor with a.m. labs - hypokalemia @ 3.4 repleted with 1 K rider Nutrition: regular Prophylaxis: DVT: heparin TID GI: deferred Disposition: full code. Visit type - Emergency Visit Emergency Visit: Yes ED Registration Date: 11/07/17 Care time: The patient presented to the Emergency Department on the above date and was hospitalized for further evaluation of their emergent condition. - New Patient This patient is new to me today: Yes Date on this admission: 11/08/17 - Critical Care Critical Care patient: No - Discharge Referral Referred to [facility] No
[2017-11-09] MEDS: GABAPENTIN 300 MG CAPSULE (FP) PO SCH ×2 (06:30→13:42)
[2017-11-09] MEDS: HEPARIN NA (PORCINE) 5,000 UNITS/ML 1ML VIAL SQ SCH ×2 (06:31→13:41)
[2017-11-09] MEDS ORDERED: LEVOTHYROXINE NA 88 MCG TABLET (FP) PO SCH (07:00)
[2017-11-09 07:50] LABS: ALBUMIN 3.4 g/dl (3.4-5.0); ANION GAP 8 (8-16); BLOOD UREA NITROGEN 9 mg/dL (7-18); CHLORIDE 107 mmol/L (98-107); CO2 26 mmol/L (21-32); GLUCOSE,RANDOM 91 mg/dL (74-106); POTASSIUM 4.2 mmol/L (3.5-5.1); SODIUM 141 mmol/L (136-145)
[2017-11-09 07:56] LABS: ALK PHOS 113 U/L (45-117); BILIRUBIN,TOTAL 0.6 mg/dL (0.2-1.0); CREATININE 0.5 mg/dL (0.55-1.02); SGOT/AST 44 U/L (15-37); SGPT/ALT 58 U/L (12-78); TOT PROT 7.2 g/dl (6.4-8.2)
[2017-11-09 08:08] LABS: BASO % 0.2 % (0-2.0); HEMATOCRIT 38.6 % (32.4-45.2); HEMOGLOBIN 12.3 GM/dL (10.7-15.3); MCH 27.6 pg (25.7-33.7); MCHC 31.7 g/dl (32.0-36.0); MEAN CELL VOLUME 87.1 fl (80-96); MEAN PLT VOLUME 10.1 fl (7.5-11.1); MONO % 8.9 % (3.8-10.2); NEUT % 75.9 % (42.8-82.8); PLATELET COUNT 208 K/MM3 (134-434); RBC 4.43 M/mm3 (3.60-5.2); RDW 15.8 % (11.6-15.6); WHITE BLOOD COUNT 9.7 K/mm3 (4.0-10.0)
--- NOTE | 2017-11-09 09:44 | PN ---
Progress Note (short form) - Note Progress Note: Post op day#1.S/P Lap cholecystectomy under GA uneventful.Patient stable.No any anesthesia related problem.Patient DC from the anesthesia care.
[2017-11-09] MEDS ORDERED: amLODIPine BESYLATE 10 MG TABLET (FP) PO SCH (10:00)
--- NOTE | 2017-11-09 10:44 | PN ---
Progress Note (short form) - Note Progress Note: Attending Surgeon POD #1 No c/o; tolerated liquids VSS AF abdomen-soft; port site dressings c/d/i; port site tenderness o/w negative abdominal exam labs noted IMP: doing well PLAN: Regular diet and d/c to office w/instructions; f/u 7-10 days post op
--- NOTE | 2017-11-09 11:29 | OP ---
DATE OF OPERATION: PREOPERATIVE DIAGNOSIS: Acute cholecystitis. PREOPERATIVE DIAGNOSIS: Acute cholecystitis. PROCEDURE: Laparoscopic cholecystectomy. SURGEON: Yair Arredondo MD REAL ESTATE BROKER: Mary Anne Robertson PA-C ANESTHESIA: General. OPERATIVE FINDINGS: Acute cholecystitis and cholelithiasis. The rest of the findings were unremarkable. DESCRIPTION OF PROCEDURE: The patient was placed on the operating room table in supine position. After the induction of general anesthesia, the patient's abdomen was prepped with ChloraPrep and draped in sterile fashion. A time-out was taken and the pneumoperitoneum established above the umbilicus using a Veress needle to an intra-abdominal pressure of 15 mmHg. A 5-mm port was subsequently placed at the umbilicus as well as additional lateral 5-mm ports and a subxiphoid 12-mm port. Laparoscopy was carried out, and the previously noted findings were observed. Using blunt dissection and electrocautery, adhesions of omentum to the gallbladder were taken down. The gallbladder was placed on cephalad and lateral traction. Dissection begun in the hepatocystic triangle where the peritoneum over the neck of the gallbladder was opened medially and laterally using electrocautery and blunt dissection. The cystic duct was identified and dissected free from the surrounding tissues as was the cystic artery. A critical view of safety was taken and then the duct and artery were clipped twice proximally and twice distally with large hemoclips. The duct and artery were divided using Endo Fredy. The gallbladder was then removed in a retrograde fashion from the liver bed using electrocautery. Prior to removal from the edge of the liver, hemostasis was checked for and noted to be good. The gallbladder was then removed from the edge of the liver, placed in an EndoCatch, and brought out through the subxiphoid port and sent for pathological examination. Pneumoperitoneum was re-established and irrigation was carried out until the return was clear. Hemostasis was again verified and then all ports were removed under laparoscopic vision without evidence of bleeding from the port sites. Each port site was infiltrated with 0.5% Marcaine after the pneumoperitoneum was evacuated. The skin edges and all cases were closed using 4-0 Monocryl in a subcuticular continuous fashion followed by Steri-Strips and Band-Aid dressings. The patient was then aroused from general anesthesia and transferred to the post anesthesia care unit in stable condition awake and alert. ESTIMATED BLOOD LOSS: 20 mL. REPLACEMENT: Crystalloid. DRAINS: None. SPECIMENS: Gallbladder and contents to pathology. I, Yair Arredondo, was physically present in the operating room from the time the patient was placed on the operating room table until she was transferred to the post anesthesia care unit in [facility]. MD JENNIFER Wolff/[id number] MTDD
[2017-11-09] MEDS: SODIUM CHLORIDE 1,000 ML IV SCH (13:41)
[2017-11-09] MEDS: LACTATED RINGERS SOLUTION 1,000 ML IV SCH (13:42)
[2017-11-09] MEDS ORDERED: LEVOTHYROXINE NA 25 MCG TABLET (FP) PO ONE (14:03)
[2017-11-09 14:41] VITALS: BP 120/57; PULSE 68; TEMP 98.3
--- NOTE | 2017-11-09 16:34 | DS ---
Physical Exam: SUBJECTIVE: Patient seen and examined OBJECTIVE: Vital Signs Period Temp Pulse Resp BP Sys/Baker Pulse Ox Last 24 Hr 97.8 F-98.5 F 54-77 18-20 114-153/57-75 96-96 PHYSICAL EXAM GENERAL: The patient is awake, alert, and fully oriented, in no acute distress. HEAD: Normal with no signs of trauma. EYES: PERRL, extraocular movements intact, sclera anicteric, conjunctiva clear. ENT: Ears normal, nares patent, oropharynx clear without exudates, moist mucous membranes. NECK: Trachea midline, full range of motion, supple. LUNGS: Breath sounds equal, clear to auscultation bilaterally, no wheezes, no crackles, no accessory muscle use. HEART: Regular rate and rhythm, S1, S2 without murmur, rub or gallop. ABDOMEN: Soft, nontender, nondistended, normoactive bowel sounds, no guarding, no rebound, no hepatosplenomegaly, no masses. EXTREMITIES: 2+ pulses, warm, well-perfused, no edema. NEUROLOGICAL: Cranial nerves II through XII grossly intact. Normal speech, gait not observed. PSYCH: Normal mood, normal affect. SKIN: Warm, dry, normal turgor, no rashes or lesions noted. LABS Laboratory Results - last 24 hr 11/09/17 11/09/17 06:45 06:45 WBC 9.7 D RBC 4.43 Hgb 12.3 Hct 38.6 MCV 87.1 MCH 27.6 MCHC 31.7 L RDW 15.8 H Plt Count 208 MPV 10.1 Neutrophils % 75.9 D Lymphocytes % 15.0 D Monocytes % 8.9 Eosinophils % 0.0 D Basophils % 0.2 Sodium 141 Potassium 4.2 Chloride 107 Carbon Dioxide 26 Anion Gap 8 BUN 9 Creatinine 0.5 L Creat Clearance w eGFR > 60 Random Glucose 91 Calcium 9.0 Magnesium 2.0 Total Bilirubin 0.6 AST 44 H ALT 58 Alkaline Phosphatase 113 Total Protein 7.2 Albumin 3.4 HOSPITAL COURSE: Date of Admission:11/07/17 Date of Discharge: 11/09/17 Discharge Summary Reason For Visit: ACUTE CHOLECYSTITIS Condition: Improved - Instructions Diet, Activity, Other Instructions: Dr. Arredondo Discharge Instructions Dear JACKELYN ALMODOVAR, Post Operative Instructions Physical activity Resume your normal everyday activity as tolerated no heavy lifting or exercise until seen by your surgeon. You may walk unlimited amounts of and climb stairs. You may resume driving the car when you feel safe and comfortable behind the wheel. Wound care If you have a bandage, leave it on, and keep dry for 48 - 72 hours. After that time discard the outer bandage. If there are tapes on the skin under the outer bandage, leave them in place. They will peel off in the next 7 to 10 days. Do Not peel them off. You may shower 2 days after surgery. If there are tapes present on the skin, they can get wet. Diet There are no dietary restrictions. Eat healthy, high-fiber foods. Drink 6 to 8 glasses of liquid each day. This will assist in keeping your bowels are regular. Pain management You may take Tylenol or acetaminophen or Ibuprofen (for example, Motrin, Advil etc.) Any pain prescription medication ordered should be taken as prescribed for moderate to severe pain. Call Dr. Arredondo for any of the following: Severe pain not relieved by medication Fever of 101 or higher Excessive bleeding or drainage on dressing Inability to urinate Call the office at [phone] for a post operative appointment in 7 - 10 days. Referrals: Yair Arredondo MD [Staff Physician] - Narciso Moncada MD [Non Staff, Medical] - Disposition: HOME - Home Medications Comprehensive Discharge Medication List: Ambulatory Orders Amlodipine Besylate [Norvasc -] 10 mg PO DAILY 07/11/12 Acetaminophen [Pain Relief] 650 mg PO Q8H PRN 11/07/17 Levothyroxine [Synthroid -] 125 mcg PO DAILY 11/07/17 Gabapentin [Neurontin -] 300 mg PO TID #90 capsule 11/09/17 - Discharge Referral Referred to [facility] Med [facility]C.: No
--- NOTE | 2017-11-09 17:16 | PATH ---
Surgical Pathology Report Patient Name: JACKELYN ALMODOVAR Med. Rec. #: [id number] /Age/Gender: 1960 (Age: 57) / F Account: [id number] Location: [facility]/SURG Taken: 11/08/2017 Received: 11/08/2017 Reported: 11/09/2017 Physicians: MD Bridget Chaudhari, ADRIÁN Specimen(s) Received GALLBLADDER Clinical History Acute cholecystitis Final Diagnosis GALLBLADDER, LAPAROSCOPIC CHOLECYSTECTOMY: ACUTE AND CHRONIC CHOLECYSTITIS AND CHOLELITHIASIS. ONE BENIGN PERIDUCTAL LYMPH NODE (0/1). Electronically Signed Mary Sparrow M.D. Gross Description Received in formalin, labeled "gallbladder," is a 5.8 x 3.0 x 2.1 cm. gallbladder with a 0.2 cm. in length portion of cystic duct attached. There is a 0.6 cm in greatest dimension periductal lymph node present. The outer surface is simon-pink and varies from smooth to shaggy. The lumen contains simon bile as well as a 2.1 cm in greatest dimension yellow, ovoid, bosselated choleliths. The mucosa is simon-red and focally eroded. The wall of the gallbladder averages 0.1 cm. in thickness. Outboard Motor Mechanic sections are submitted in one cassette. 11/08/201711/08/2017
== END 2017-11-09 15:05 | disposition home or self-care (01) | DRG 263 ==
LOC: JER 01:52 → JERBED 08:26 → UNDOADMIN 10:28 → JERBED 10:28 → J7W 16:24
PROVIDERS: ADMIT Internal Medicine; ATTEND Nurse Practitioner Family
PROC: 0FT44ZZ Resection of Gallbladder, Percutaneous Endoscopic Approach (ICD-10-PCS; principal; 2017-11-07)
DX: K80.00 Calculus of gallbladder with acute cholecystitis without obstruction (principal); I10 Essential (primary) hypertension; E03.9 Hypothyroidism, unspecified; K81.0 Acute cholecystitis
CPT/HCPCS: 36415; 71046-TC-FY; 74177-TC; 76705-TC; 80053; 81003; 82150; 83690; 83735; 84100; 85025; 88304-TC; 93005; 93010; 94010; 94760; 99283-25; J1644

== ENCOUNTER 2017-12-31 07:04 | Day surgery (SDC) | payer OTHER ==
[2017-12-30 14:02] VITALS: BMI 37.2
[2017-12-31] MEDS ORDERED: LIDOCAINE HCL 2% (20ML MULTI-DOSE VIAL) NR ONE (08:04)
[2017-12-31] MEDS ORDERED: PROPOFOL 20 ML ONE ×2 (08:04)
--- NOTE | 2017-12-31 08:47 | PROC ---
Endoscopy Procedure Endoscopy procedure completed. Please see scanned procedure report. EGD/Colonoscopy
[2017-12-31 09:41] VITALS: TEMP 97.9
[2017-12-31 09:48] VITALS: BP 150/96; PULSE 58
--- NOTE | 2018-01-03 11:51 | PATH ---
Surgical Pathology Report Patient Name: JACKELYN ALMODOVAR [facility]. Rec. #: [id number] /Age/Gender: 1960 (Age: 57) / F Account: [id number] Location: [facility]-ENDOSCOPY Taken: 12/31/2017 Received: 12/31/2017 Reported: 01/03/2018 Physicians: Coy Winn M.D. Specimen(s) Received A: BX DUODENUM B: BX ANTRUM AND BODY C: BX DESCENDING COLON Clinical History Epigastric pain, screening colonoscopy Final Diagnosis A. DUODENUM, BIOPSY: DUODENAL MUCOSA WITH NO PATHOLOGIC CHANGES. NO HISTOLOGIC EVIDENCE OF GLUTEN SENSITIVE ENTEROPATHY (CELIAC SPRUE) IDENTIFIED. B. STOMACH, ANTRUM AND BODY, BIOPSY: MODERATE CHRONIC GASTRITIS WITH REACTIVE GASTROPATHY. IMMUNOSTAIN FOR H. PYLORI IS NEGATIVE C. COLON, DESCENDING, BIOPSY: TUBULAR ADENOMA. Electronically Signed Keshav Turner M.D. Gross Description A. Received in formalin, labeled "BX duodenum" are 2 simon, irregular portions of soft tissue measuring 0.2 and 0.3 cm. in greatest dimension. The specimens are submitted in toto in one cassette. B. Received in formalin, labeled "BX antrum/body" are 2 simon, irregular portions of soft tissue measuring 0.3 cm. in greatest dimension. The specimens are submitted in toto in one cassette. C. Received in formalin, labeled "BX descending colon" is a simon, irregular portion of soft tissue measuring 0.2 cm. in greatest dimension. The specimen is submitted in toto in one cassette. CHARLI/12/31/2017 lavern/12/31/2017
== END 2017-12-31 09:49 | disposition home or self-care (01) ==
LOC: JASU-ENDO 07:04
PROVIDERS: ATTEND Internal Medicine Gastroenterology
PROC: 0DB98ZX Excision of Duodenum, Via Natural or Artificial Opening Endoscopic, Diagnostic (ICD-10-PCS; 2017-12-31)
PROC: 0DB68ZX Excision of Stomach, Via Natural or Artificial Opening Endoscopic, Diagnostic (ICD-10-PCS; 2017-12-31)
PROC: 0DBM8ZX Excision of Descending Colon, Via Natural or Artificial Opening Endoscopic, Diagnostic (ICD-10-PCS; principal; 2017-12-31 08:00)
DX: Z12.11 Encounter for screening for malignant neoplasm of colon (principal); D12.4 Benign neoplasm of descending colon; K29.70 Gastritis, unspecified, without bleeding; K44.9 Diaphragmatic hernia without obstruction or gangrene

== ENCOUNTER → 2019-02-01 | Day surgery (SDC) | payer OTHER ==
--- NOTE | 2019-02-06 12:04 | PATH ---
Cytology Non-Gynecological Report Patient Name: JACKELYN ALMODOVAR [facility]. Rec. #: [id number] /Age/Gender: 1960 (Age: 58) / F Account: [id number] Location: COUNTS INCLUDE [facility] BEDS AT THE [facility] Taken: 02/01/2019 Received: 02/01/2019 Reported: 02/06/2019 Physicians: Rama Pena M.D. Specimen(s) Received LEFT THYROID FNA Clinical History Left thyroid nodule Final Diagnosis THYROID, LEFT, FINE NEEDLE ASPIRATION: SATISFACTORY FOR EVALUATION. BETHESDA IV: SUSPICIOUS FOR FOLLICULAR NEOPLASM. CELLULAR ASPIRATE OF FOLLICULAR CELLS WITH A PREDOMINANTLY MICROFOLLICULAR ARCHITECTURE; NO DEFINITIVE COLLOID PRESENT. Intradepartmental case reviewed with concordance for diagnosis. Electronically Signed Meredith Richards M.D. Gross Description Received are eight direct smears, four of which are air-dried and Diff-Quik stained, and four of which are alcohol fixed and Pap stained. Also received is 20 ml of bloody formalin from which one cellblock is prepared.
== END | disposition home or self-care (01) ==
LOC: JRADUS 08:30 → JRADUS-SUR 08:30 → EDSTATUS 10:00
PROVIDERS: ATTEND Internal Medicine Endocrinology, Diabetes & Metabolism
PROC: 0G9G3ZX Drainage of Left Thyroid Gland Lobe, Percutaneous Approach, Diagnostic (ICD-10-PCS; principal; 2019-02-01)
DX: E04.1 Nontoxic single thyroid nodule (principal)
CPT/HCPCS: 10005; 76942; 88173; 88305-TC

== ENCOUNTER 2019-08-29 05:45 | Inpatient (IN) | payer OTHER ==
[2019-08-29] MEDS ORDERED: TRANEXAMIC ACID 1000 MG/10 ML VIAL IVPUSH ONE (06:32)
[2019-08-29] MEDS ORDERED: CEFAZOLIN 3 GM in DEXTROSE 5%-WATER - 100 ML IVPB ONE (06:32)
[2019-08-29] MEDS ORDERED: CELECOXIB 200 MG CAPSULE PO ONE (06:32)
[2019-08-29 06:38] VITALS: BMI 36.8
[2019-08-29] MEDS ORDERED: BUPIVACAINE HCL/PF 0.5% (5 MG/ML) 30 ML VIAL IJ ONE (07:07)
[2019-08-29] MEDS ORDERED: MIDAZOLAM HCL 2 MG/2 ML SINGLE DOSE VIAL ONE (07:07)
[2019-08-29] MEDS ORDERED: VANCOMYCIN 1,000 MG VIAL (RESTRICTED TO ID ONLY) ONE (07:22)
[2019-08-29] MEDS ORDERED: ceFAZolin SODIUM 1 GM VIAL ONE ×3 (07:22→16:40)
[2019-08-29] MEDS ORDERED: SUCCINYLCHOLINE CHLORIDE 200 MG/10 ML SYRINGE ONE (07:41)
[2019-08-29] MEDS ORDERED: PROPOFOL 20 ML ONE ×2 (07:41→09:22)
[2019-08-29] MEDS ORDERED: SODIUM CHLORIDE 0.9% P/F 10 ML VIAL IJ ONE (07:43)
[2019-08-29] MEDS ORDERED: DEXAMETHASONE SOD PHOSPHATE 4 MG/1 ML VIAL ONE (07:43)
[2019-08-29] MEDS ORDERED: ONDANSETRON 4 MG/2 ML VIAL ONE (07:43)
[2019-08-29] MEDS ORDERED: BUPIVACAINE HCL/PF 0.5% (5MG/ML) 10 ML VIAL ONE (07:48)
--- NOTE | 2019-08-29 07:53 | HP ---
Satellite H - Chief Complaint Chief Complaint: left hip pain - Past Medical History Allergies/Adverse Reactions: Allergies Allergy/AdvReac Type Severity Reaction Status Date / Time aspirin AdvReac Mild Verified 08/18/19 14:39 Cardiovascular: Yes: HTN Endocrine: Yes: Hypothyroidism - Current Medications Current Medications: Home Medications Medication Instructions Recorded Levothyroxine [Synthroid -] 125 mcg PO DAILY 11/07/17 Amlodipine Besylate 5 mg PO DAILY 12/31/17 Gabapentin 300 mg PO PRN PRN 12/31/17 Satellite Physical Exam - Physical Examination Vital Signs: Vital Signs Period Temp Pulse Resp BP Sys/Baker Pulse Ox Last 24 Hr 98.2 F 62 18 194/82 General Appearance: Well Nourished, Well Developed, Alert & Oriented x3 ENT: Clear Lung: Normal air movement Extremities: Other (left hip- + ttp, decr rom, nvi, xrays show grade 4 hip djd) Neurological: Intact, Alert, Oriented Satellite Impression/Plan - Impression/Plan Impression: left hip djd Operative Procedure: left geraldo thr Date to be Performed: 08/29/19
[2019-08-29] MEDS ORDERED: ONDANSETRON 4 MG/2 ML VIAL IVPUSH PRN (07:55)
[2019-08-29] MEDS ORDERED: MAG HYDROX/AL HYDROX/SIMETH 30 ML UNIT-DOSE CUP PO PRN (07:55)
[2019-08-29] MEDS ORDERED: MAGNESIUM HYDROX 2400MG/30ML ORAL SUSPENSION 30 ML CUP PO PRN (07:55)
[2019-08-29] MEDS ORDERED: GABAPENTIN 300 MG CAPSULE (FP) PO PRN (07:57)
[2019-08-29] MEDS ORDERED: DEXMEDETOMIDINE HCL 200 MCG/2 ML IVPB ONE (07:59)
[2019-08-29] MEDS ORDERED: LACTATED RINGERS SOLUTION 1,000 ML IV SCH (08:00)
[2019-08-29] MEDS ORDERED: EPHEDRINE SULFATE/0.9% NACL/PF 50 MG/10 ML SYRINGE NR ONE (09:03)
--- NOTE | 2019-08-29 09:55 | OP ---
Operative Note - Note: Operative Date: 08/29/19 (jazmin) Pre-Operative Diagnosis: left hip djd Operation: left geraldo thr Post-Operative Diagnosis: Same as Pre-op Surgeon: Neel De Oliveira Director Of Science: Ramo Howell Anesthesiologist/BOAT RENTAL CLERK: Oswaldo Winchester Anesthesia: Spinal, Local Specimens Removed: femoral head Estimated Blood Loss (mls): 150
[2019-08-29] MEDS ORDERED: oxyCODONE HCL 5 MG TABLET PO PRN (10:22)
[2019-08-29] MEDS ORDERED: PROMETHAZINE HCL 25 MG/1 ML VIAL IVPUSH PRN (10:22)
[2019-08-29] MEDS ORDERED: ACETAMINOPHEN 325 MG TABLET (FP) ONE (11:07)
[2019-08-29] MEDS: ACETAMINOPHEN 325 MG TABLET (FP) PO SCH ×2 (11:21→17:24)
--- NOTE | 2019-08-29 13:37 | SPEC ---
DATE OF OPERATION: 08/29/2019 PREOPERATIVE DIAGNOSIS: Degenerative joint disease, left hip. POSTOPERATIVE DIAGNOSIS: Degenerative joint disease, left hip. PROCEDURE PERFORMED: Left total hip replacement with robotic-assisted navigation (MAKOplasty). SURGICAL ATTENDING: Neel De Oliveira MD HEEL ATTACHER WOOD: SITA Hinton ANESTHESIA: Regional and spinal. CLOSURE: A Nadeen total hip system with a 52 Trident II press-fit acetabular shell, a size 4 Accolade II femoral stem press-fit, a 36 standard ceramic femoral head. Number 1 Vicryl for fascia, 0 and 2-0 subcutaneous, 3-0 V-Loc for skin with skin glue, 4-0 undyed Vicryl for pin sites. ESTIMATED BLOOD LOSS: Less than 100 mL. COMPLICATIONS: None. CONDITION: To the recovery room in stable condition. DESCRIPTION OF PROCEDURE: The patient was taken to the operating room on August 29, 2019. General and regional anesthesia was administered by the anesthesiologist. IV Kefzol and TXA were administered prophylactically prior to the case. The patient was placed in the lateral decubitus position will all prominences well-padded. The left hip area was prepped and draped in the usual sterile fashion. Using 3 small stab incisions over the iliac crest, 3 threaded pins were drilled in power fashion through the 2 tables of the crest. These pins were fastened and the navigation array for the Esdras navigation system. Next, a 12 to 15-cm curved longitudinal incision over the posterolateral aspect of the greater trochanter was incised. Hemostasis was achieved with Bovie cautery. Sharp dissection was carried down to level of the fascia. The fascia was opened the entire length of the incision, spreading the fibers of the gluteus payton in the direction of origin. A Charnley retractor was placed in this layer. Care was taken not to impale the sciatic nerve. The short external rotators were detached off the insertion of the greater trochanter and peeled off the capsule. A posterior capsulotomy was then performed. A check point was malleted into the greater trochanter and a point on the inferior pole of the patella was obtained as well. These 2 points were used to assess the preoperative offset and limb lengths of the hip. The hip was then dislocated. The femoral neck was then osteotomized down to the appropriate level as directed by the navigation device. Anterior and posterior retractors were placed, exposing the acetabulum. A circumferential labral excision was performed. A check point was malleted into the acetabulum as well. Multiple sites inside the acetabulum and around the rim were utilized to register the acetabulum with the navigation device. An excellent registration of less than 0.5 mm was obtained. The hip was then reamed with the appropriate reamer down to the appropriate depth, with the appropriate orientation and version as assessed on our preoperative plan for this patient. The reamer was removed and the acetabulum was inspected to have good bleeding surfaces throughout. The real acetabular cup was then malleted down into place, with the holes in the appropriate position, until an excellent fixation was obtained. No screws were necessary. The navigation device ensured appropriate orientation and version, with the depth as predetermined. The appropriate liner was then clipped into place. Attention was directed to the femur. The proximal femur was prepared by use a box chisel, a canal finder and serial broaches until the broach achieved excellent rigidity in the proximal femur with the appropriate version being applied. A calcar planer was used to smooth off the calcar flush with the trial components. A trial reduction with the appropriate head was done, and the hip was reduced. The hip was taken through a range of motion from full extension with external rotation to marked flexion and was stable at 90 degrees of flexion. It was stable to marked abduction and internal rotation, with a positive hang test and negative telescoping. Limb lengths were ascertained visually as well as with the navigation device to be within the targeted range for this patient. The trial component was removed. The real component was then malleted into place. The head was cold welded to the trunnion, and the hip was reduced. Range of motion, stability and limb lengths were as described in the trial component. Then the hip was pulse antibiotic irrigated. Vancomycin powder was placed in the hip joint. The capsule was closed. The fascia was then closed as well using number 1 Vicryl interrupted suture, 0 and 2-0 subcutaneous, and 3-0 V-Loc for the skin. 4-0 undyed Vicryl was used to close the pin sites after the pins were removed. All check points were also removed. Sterile Aquacel dressing was applied. The patient was awakened from anesthesia and transferred into the supine position. Bilateral SCDs and an abduction pillow were placed. X-rays revealed excellent position of the components. The patient was transferred to the recovery room in stable condition, with no complications. Estimated blood loss was less than 100 mL. Rama DYSON/[id number]
[2019-08-29] MEDS: oxyCODONE HCL 5 MG TABLET PO PRN ×2 (14:48→17:21)
[2019-08-29] MEDS: PANTOPRAZOLE 40 MG TABLET (FP) PO SCH (15:26)
[2019-08-29] MEDS: SENNOSIDES/DOCUSATE COMBO (SENNA PLUS) TABLET (UD) PO SCH ×2 (15:26→21:34)
[2019-08-29] MEDS: amLODIPine BESYLATE 5 MG TABLET (FP) PO SCH (15:26)
[2019-08-29] MEDS: MULTIVITAMINS (DAILY MVI) TABLET (FP) PO SCH (15:27)
[2019-08-29] MEDS: LEVOTHYROXINE NA 125 MCG TABLET (FP) PO SCH (15:27)
[2019-08-29] MEDS ORDERED: DEXTROSE 5%-WATER 100 ML IVPB ONE (16:40)
[2019-08-29] MEDS: CEFAZOLIN 3 GM in DEXTROSE 5%-WATER 100 ML IVPB SCH (16:53)
--- NOTE | 2019-08-29 18:08 | CONSULT ---
Consult - Past Medical History Cardio/Vascular: Yes: HTN Musculoskeletal: Yes: Osteoarthritis Endocrine: Yes: Hypothyroidism - Alcohol/Substance Use Hx Alcohol Use: No History of Substance Use: reports: None - Smoking History Smoking history: Never smoked Have you smoked in the past 12 months: No Aproximately how many cigarettes per day: 0 - Social History ADL: Independent Occupation: does not work History of Recent Travel: No Home Medications - Allergies Allergies/Adverse Reactions: Allergies Allergy/AdvReac Type Severity Reaction Status Date / Time aspirin AdvReac Mild Verified 08/18/19 14:39 - Home Medications Home Medications: Ambulatory Orders Levothyroxine [Synthroid -] 125 mcg PO DAILY 11/07/17 Amlodipine Besylate 5 mg PO DAILY 12/31/17 Gabapentin 300 mg PO PRN PRN 12/31/17 Oxycodone HCl/Acetaminophen [Percocet 5-325 mg Tablet -] 1 - 2 tab PO Q6H #50 tab MDD 8 08/29/19 Physical Exam Vital Signs: Vital Signs Temperature 97.5 F L 08/29/19 12:17 Pulse Rate 58 L 08/29/19 12:17 Respiratory Rate 16 08/29/19 12:17 Blood Pressure 140/72 08/29/19 12:17 O2 Sat by Pulse Oximetry (%) 100 08/29/19 12:17 Cardiovascular: Yes: Regular Rate and Rhythm, Murmur Respiratory: Yes: Regular, CTA Bilaterally Gastrointestinal: Yes: Normal Bowel Sounds, Soft Edema: No Wound/Incision: Yes: Dressing Dry and Intact Problem List - Problems (1) HTN (hypertension) Assessment/Plan: controlled same meds Selected Entries 08/29/19 08/29/19 11:15 12:17 Blood Pressure 153/75 140/72 Code(s): I10 - ESSENTIAL (PRIMARY) HYPERTENSION (2) Hypothyroid Assessment/Plan: Orders 08/29/19 10:00 Levothyroxine [Synthroid -] 125 mcg PO DAILY@0700 Code(s): E03.9 - HYPOTHYROIDISM, UNSPECIFIED (3) Osteoarthritis Assessment/Plan: pain control Code(s): M19.90 - UNSPECIFIED OSTEOARTHRITIS, UNSPECIFIED SITE (4) S/P hip replacement Assessment/Plan: DVT Prophylaxis per ortho Code(s): Z96.649 - PRESENCE OF UNSPECIFIED ARTIFICIAL HIP JOINT
[2019-08-29] MEDS: oxyCODONE HCL 10 MG SUSTAINED ACTING TABLET PO SCH (21:34)
[2019-08-30] MEDS ORDERED: ceFAZolin SODIUM 1 GM VIAL ONE (00:44)
[2019-08-30] MEDS ORDERED: DEXTROSE 5%-WATER 100 ML IVPB ONE (00:44)
[2019-08-30] MEDS: CEFAZOLIN 3 GM in DEXTROSE 5%-WATER 100 ML IVPB SCH (00:55)
[2019-08-30] MEDS: ACETAMINOPHEN 325 MG TABLET (FP) PO SCH ×4 (00:56→17:40)
[2019-08-30] MEDS: oxyCODONE HCL 5 MG TABLET PO PRN (06:29)
[2019-08-30] MEDS: LEVOTHYROXINE NA 125 MCG TABLET (FP) PO SCH (06:30)
[2019-08-30 08:03] LABS: HEMATOCRIT 35.2 % (32.4-45.2); HEMOGLOBIN 11.5 GM/dl (10.7-15.3); MCH 28.9 pg (25.7-33.7); MCHC 32.6 g/dl (32.0-36.0); MEAN CELL VOLUME 88.6 fl (80-96); MEAN PLT VOLUME 10.4 fl (7.5-11.1); PLATELET COUNT 174 K/MM3 (134-434); RBC 3.97 M/mm3 (3.60-5.2); RDW 14.8 % (11.6-15.6); WHITE BLOOD COUNT 9.1 K/mm3 (4.0-10.8)
--- NOTE | 2019-08-30 08:28 | PN ---
Progress Note, Physician - Current Medication List Current Medications: Active Medications Acetaminophen (Tylenol -) 650 mg PO Q6H [facility] Stop: 09/01/19 11:59 Last Admin: 08/30/19 06:30 Dose: 650 mg Al Hydroxide/Mg Hydroxide (Mylanta Oral Suspension -) 30 ml PO Q4H PRN PRN Reason: DYSPEPSIA Amlodipine Besylate (Norvasc -) 5 mg PO DAILY [facility] Last Admin: 08/29/19 15:26 Dose: Not Given Enoxaparin Sodium (Lovenox -) 40 mg SQ DAILY@0800 [facility] Gabapentin (Neurontin -) 300 mg PO PRN PRN PRN Reason: PAIN Levothyroxine Sodium (Synthroid -) 125 mcg PO DAILY@0700 [facility] Last Admin: 08/30/19 06:30 Dose: 125 mcg Magnesium Hydroxide (Milk Of Magnesia -) 30 ml PO PRN PRN PRN Reason: CONSTIPATION Multivitamins/Minerals/Vitamin C (Tab-A-Vit -) 1 tab PO DAILY [facility] Last Admin: 08/29/19 15:27 Dose: Not Given Ondansetron HCl (Zofran Injection) 4 mg IVPUSH Q6H PRN PRN Reason: NAUSEA Oxycodone HCl (Roxicodone -) 5 mg PO Q3H PRN PRN Reason: PAIN LEVEL 1-5 Oxycodone HCl (Roxicodone -) 10 mg PO Q3H PRN PRN Reason: PAIN LEVEL 6-10 Last Admin: 08/30/19 06:29 Dose: 10 mg Oxycodone HCl (Oxycontin -) 10 mg PO BID [facility] Stop: 09/01/19 10:23 Last Admin: 08/29/19 21:34 Dose: 10 mg Pantoprazole Sodium (Protonix -) 40 mg PO DAILY [facility] Last Admin: 08/29/19 15:26 Dose: Not Given Senna/Docusate Sodium (Pericolace -) 2 tablet PO BID [facility] Last Admin: 08/29/19 21:34 Dose: 2 tablet - Objective Vital Signs: Vital Signs Temperature 97.8 F 08/30/19 06:00 Pulse Rate 64 08/30/19 06:00 Respiratory Rate 18 08/30/19 08:12 Blood Pressure 140/66 08/30/19 06:00 O2 Sat by Pulse Oximetry (%) 98 08/30/19 08:12 Cardiovascular: Yes: Regular Rate and Rhythm Respiratory: Yes: Regular, CTA Bilaterally Gastrointestinal: Yes: Normal Bowel Sounds, Soft Labs: CBC, BMP 08/30/19 07:22 Problem List - Problems (1) HTN (hypertension) Assessment/Plan: controlled same meds Selected Entries 08/29/19 08/29/19 11:15 12:17 Blood Pressure 153/75 140/72 Code(s): I10 - ESSENTIAL (PRIMARY) HYPERTENSION (2) Hypothyroid Assessment/Plan: Orders 08/29/19 10:00 Levothyroxine [Synthroid -] 125 mcg PO DAILY@0700 Code(s): E03.9 - HYPOTHYROIDISM, UNSPECIFIED (3) Osteoarthritis Assessment/Plan: pain control Code(s): M19.90 - UNSPECIFIED OSTEOARTHRITIS, UNSPECIFIED SITE (4) S/P hip replacement Assessment/Plan: DVT Prophylaxis per ortho Code(s): Z96.649 - PRESENCE OF UNSPECIFIED ARTIFICIAL HIP JOINT
[2019-08-30] MEDS: ENOXAPARIN NA (PORCINE) 40 MG/0.4 ML DISP.SYRIN SQ SCH (08:40)
[2019-08-30] MEDS: SENNOSIDES/DOCUSATE COMBO (SENNA PLUS) TABLET (UD) PO SCH ×2 (09:08→21:59)
[2019-08-30] MEDS: oxyCODONE HCL 10 MG SUSTAINED ACTING TABLET PO SCH ×2 (09:08→21:59)
[2019-08-30] MEDS: amLODIPine BESYLATE 5 MG TABLET (FP) PO SCH (09:08)
[2019-08-30] MEDS: PANTOPRAZOLE 40 MG TABLET (FP) PO SCH (09:08)
[2019-08-30] MEDS: MULTIVITAMINS (DAILY MVI) TABLET (FP) PO SCH (09:08)
--- NOTE | 2019-08-30 09:13 | PN ---
Progress Note (short form) - Note Progress Note: Ortho Pt seen and examined s/p left geraldo thr pod #1 Selected Entries 08/30/19 06:00 Temperature 97.8 F Pulse Rate 64 Respiratory 18 Rate Blood Pressure 140/66 Laboratory Tests 08/30/19 07:22 WBC 9.1 Hgb 11.5 Hct 35.2 Plt Count 174 dressing c/d/i, calf soft, nt nvi a/p PT hip precautions dvt ppx pain control d/c planning
--- NOTE | 2019-08-30 09:37 | PN ---
Progress Note (short form) - Note Progress Note: Anesthesia post op/pain Pt seen and examined S:Alert and awake, comfortable O: Vital Signs Temperature 97.8 F 08/30/19 06:00 Pulse Rate 64 08/30/19 06:00 Respiratory Rate 18 08/30/19 08:12 Blood Pressure 140/66 08/30/19 06:00 O2 Sat by Pulse Oximetry (%) 98 08/30/19 08:12 CBC, BMP 08/30/19 07:22 A/P: Current Active Problems HTN (hypertension) (Acute) Hypothyroid (Acute) Osteoarthritis (Acute) S/P hip replacement (Acute) Doing well post op Continue current care Merrill Westfall MD
[2019-08-31] MEDS: ACETAMINOPHEN 325 MG TABLET (FP) PO SCH ×2 (00:47→06:48)
[2019-08-31] MEDS: oxyCODONE HCL 5 MG TABLET PO PRN (06:47)
[2019-08-31] MEDS: LEVOTHYROXINE NA 125 MCG TABLET (FP) PO SCH (06:47)
[2019-08-31 07:05] VITALS: BP 125/56; PULSE 69; TEMP 98.5
[2019-08-31] MEDS: oxyCODONE HCL 10 MG SUSTAINED ACTING TABLET PO SCH (09:02)
[2019-08-31] MEDS: PANTOPRAZOLE 40 MG TABLET (FP) PO SCH (09:03)
[2019-08-31] MEDS: ENOXAPARIN NA (PORCINE) 40 MG/0.4 ML DISP.SYRIN SQ SCH (09:03)
[2019-08-31] MEDS: SENNOSIDES/DOCUSATE COMBO (SENNA PLUS) TABLET (UD) PO SCH (09:04)
[2019-08-31] MEDS: amLODIPine BESYLATE 5 MG TABLET (FP) PO SCH (09:04)
--- NOTE | 2019-08-31 09:12 | PN ---
Progress Note, Physician History of Present Illness: no cp or sob - Current Medication List Current Medications: Active Medications Acetaminophen (Tylenol -) 650 mg PO Q6H [facility] Stop: 09/01/19 11:59 Last Admin: 08/31/19 06:48 Dose: 650 mg Al Hydroxide/Mg Hydroxide (Mylanta Oral Suspension -) 30 ml PO Q4H PRN PRN Reason: DYSPEPSIA Amlodipine Besylate (Norvasc -) 5 mg PO DAILY [facility] Last Admin: 08/31/19 09:04 Dose: 5 mg Enoxaparin Sodium (Lovenox -) 40 mg SQ DAILY@0800 [facility] Last Admin: 08/31/19 09:03 Dose: 40 mg Gabapentin (Neurontin -) 300 mg PO PRN PRN PRN Reason: PAIN Levothyroxine Sodium (Synthroid -) 125 mcg PO DAILY@0700 [facility] Last Admin: 08/31/19 06:47 Dose: 125 mcg Magnesium Hydroxide (Milk Of Magnesia -) 30 ml PO PRN PRN PRN Reason: CONSTIPATION Multivitamins/Minerals/Vitamin C (Tab-A-Vit -) 1 tab PO DAILY [facility] Last Admin: 08/30/19 09:08 Dose: 1 tab Ondansetron HCl (Zofran Injection) 4 mg IVPUSH Q6H PRN PRN Reason: NAUSEA Oxycodone HCl (Roxicodone -) 5 mg PO Q3H PRN PRN Reason: PAIN LEVEL 1-5 Oxycodone HCl (Roxicodone -) 10 mg PO Q3H PRN PRN Reason: PAIN LEVEL 6-10 Last Admin: 08/31/19 06:47 Dose: 10 mg Oxycodone HCl (Oxycontin -) 10 mg PO BID [facility] Stop: 09/01/19 10:23 Last Admin: 08/31/19 09:02 Dose: 10 mg Pantoprazole Sodium (Protonix -) 40 mg PO DAILY [facility] Last Admin: 08/31/19 09:03 Dose: 40 mg Senna/Docusate Sodium (Pericolace -) 2 tablet PO BID [facility] Last Admin: 08/31/19 09:04 Dose: 2 tablet - Objective Vital Signs: Vital Signs Temperature 98.5 F 08/31/19 06:00 Pulse Rate 69 08/31/19 06:00 Respiratory Rate 18 08/31/19 06:00 Blood Pressure 125/56 L 08/31/19 06:00 O2 Sat by Pulse Oximetry (%) 95 08/31/19 06:00 Cardiovascular: Yes: Regular Rate and Rhythm Respiratory: Yes: Regular, CTA Bilaterally Gastrointestinal: Yes: Normal Bowel Sounds, Soft Labs: CBC, BMP 08/30/19 07:22 Problem List - Problems (1) HTN (hypertension) Assessment/Plan: controlled same meds Selected Entries 08/29/19 08/29/19 11:15 12:17 Blood Pressure 153/75 140/72 Code(s): I10 - ESSENTIAL (PRIMARY) HYPERTENSION (2) Hypothyroid Assessment/Plan: Orders 08/29/19 10:00 Levothyroxine [Synthroid -] 125 mcg PO DAILY@0700 Code(s): E03.9 - HYPOTHYROIDISM, UNSPECIFIED (3) Osteoarthritis Assessment/Plan: pain control Code(s): M19.90 - UNSPECIFIED OSTEOARTHRITIS, UNSPECIFIED SITE (4) S/P hip replacement Assessment/Plan: DVT Prophylaxis per ortho Code(s): Z96.649 - PRESENCE OF UNSPECIFIED ARTIFICIAL HIP JOINT
--- NOTE | 2019-09-01 18:55 | PATH ---
Surgical Pathology Report Patient Name: JACKELYN ALMODOVAR Med. Rec. #: [id number] /Age/Gender: 1960 (Age: 59) / F Account: [id number] Location: [facility] Taken: 08/29/2019 Received: 08/29/2019 Reported: 09/01/2019 Physicians: Neel De Oliveira M.D. Specimen(s) Received LEFT FEMORAL HEAD Clinical History Left hip osteoarthritis Final Diagnosis LEFT FEMORAL HEAD, RESECTION: DEGENERATIVE JOINT DISEASE, LEFT HIP. Electronically Signed Meredith Richards M.D. Gross Description Received in formalin, labeled "left femoral head," is a 4.3 x 4.8 x 4.0 cm. femoral head with a 1.5 cm in length portion of femoral length attached. The margin of resection is smooth. There is a 1.5 cm greatest dimension area of eburnation present. The remaining articular surface is simon-yellow and diffusely granular. The underlying trabecular bone is yellow and hard. A customer service representative section is submitted in one cassette, following decalcification. 08/30/2019 [facility]08/30/2019
== END 2019-08-31 15:00 | disposition home health service (06) | DRG 301 ==
LOC: FM/S 05:45
PROVIDERS: ADMIT Orthopaedic Surgery; ATTEND Orthopaedic Surgery
PROC: 8E0W0CZ Robotic Assisted Procedure of Trunk Region, Open Approach (ICD-10-PCS; 2019-08-29)
PROC: 0SRB0JZ Replacement of Left Hip Joint with Synthetic Substitute, Open Approach (ICD-10-PCS; principal; 2019-08-29 08:45)
DX: M16.12 Unilateral primary osteoarthritis, left hip (principal); I10 Essential (primary) hypertension; E03.9 Hypothyroidism, unspecified
CPT/HCPCS: 36415; 73502-TC-LT-FY; 85027; 88305-TC; 88311-TC; 94760; 97116-GP; 97163-GP

== ENCOUNTER 2023-07-07 04:21 | Day surgery (SDC) | payer OTHER ==
[2023-07-06 12:49] VITALS: BMI 34.0
[~2023-07-07 04:21] MED LIST: ACETAMINOPHEN 325 MG TABLET (FP) PO PRN; BSS (NA/CA/MG/K) BALANCED SALT SOLUTION OPHTH SOLN 15 ML BOTTLE OS ONE; CHONDROITIN SU A/HYALUR SOD 1 KIT IO ONE; CYCLOPENTOLATE HCL 1% OPHTH SOLN 2 ML BOTTLE OP SCH; EPINEPHrine/PF 1 MG/1 ML (1:1,000) AMPULE SQ ONE; KETOROLAC TROMETHAMINE 0.5% EYE DROP 1 DROP DROPS OP SCH; LIDOCAINE HCL 1% PRESERVATIVE FREE - 30ML VIAL IO ONE; OFLOXACIN 0.3% OPHTHALMIC SOLUTION 5 ML BOTTLE OP SCH; PHENYLEPHRINE 2.5% OPHTH SOLN 15 ML BOTTLE OP SCH; POVIDONE-IODINE 5% OPHTHALMIC PREP 30 ML SOLUTION OS ONE; TETRACAINE 0.5% OPHTH SOLN 2 ML BOTTLE TP ONE; TROPICAMIDE 1% OPHTH SOLN 15 ML BOTTLE OP SCH
[2023-07-07] MEDS ORDERED: EPINEPHrine/PF 1 MG/1 ML (1:1,000) AMPULE ONE (07:25)
[2023-07-07] MEDS ORDERED: TETRACAINE 0.5% OPHTH SOLN 2 ML BOTTLE ONE (07:25)
[2023-07-07] MEDS ORDERED: BSS (NA/CA/MG/K) BALANCED SALT SOLUTION OPHTH SOLN 15 ML BOTTLE ONE (07:25)
[2023-07-07] MEDS ORDERED: POVIDONE-IODINE 5% OPHTHALMIC PREP 30 ML SOLUTION ONE (07:25)
[2023-07-07] MEDS ORDERED: CYCLOPENTOLATE HCL 1% OPHTH SOLN 2 ML BOTTLE ONE (08:58)
[2023-07-07] MEDS ORDERED: KETOROLAC TROMETHAMINE 0.5% EYE DROP 1 DROP DROPS ONE (08:59)
[2023-07-07] MEDS ORDERED: TROPICAMIDE 1% OPHTH SOLN 15 ML BOTTLE ONE ×2 (08:59→09:01)
[2023-07-07] MEDS ORDERED: PHENYLEPHRINE 2.5% OPTHALMIC DROP 2ML BOTTLE ONE (08:59)
[2023-07-07] MEDS ORDERED: OFLOXACIN 0.3% OPHTHALMIC SOLUTION 5 ML BOTTLE ONE (08:59)
[2023-07-07] MEDS ORDERED: BSS (NA/CA/MG/K) BALANCED SALT SOLUTION OPHTH SOLN 15 ML BOTTLE OS ONE (10:34)
[2023-07-07] MEDS ORDERED: LIDOCAINE HCL 1% PRESERVATIVE FREE - 30ML VIAL IO ONE (10:35)
[2023-07-07] MEDS ORDERED: CHONDROITIN SU A/HYALUR SOD 1 KIT IO ONE (10:35)
[2023-07-07] MEDS ORDERED: TETRACAINE 0.5% OPHTH SOLN 2 ML BOTTLE TP ONE (10:36)
[2023-07-07] MEDS ORDERED: MIDAZOLAM HCL 2 MG/2 ML SINGLE DOSE VIAL ONE (10:36)
[2023-07-07] MEDS ORDERED: POVIDONE-IODINE 5% OPHTHALMIC PREP 30 ML SOLUTION OS ONE (10:38)
[2023-07-07] MEDS ORDERED: EPINEPHrine/PF 1 MG/1 ML (1:1,000) AMPULE SQ ONE (11:00)
[2023-07-07 12:17] VITALS: RESP 18
[2023-07-07 12:45] VITALS: BP 181/66; PULSE 56; TEMP 97.9
== END 2023-07-07 12:25 | disposition home or self-care (01) ==
LOC: JASU-SURG 04:21
PROVIDERS: ATTEND Ophthalmology
PROC: 08RK3JZ Replacement of Left Lens with Synthetic Substitute, Percutaneous Approach (ICD-10-PCS; principal; 2023-07-07 10:00)
DX: H26.9 Unspecified cataract (principal)
CPT/HCPCS: V2632

== ENCOUNTER 2023-07-21 04:58 | Day surgery (SDC) | payer OTHER ==
[2023-07-20 14:18] VITALS: BMI 34.0
[~2023-07-21 04:58] MED LIST changes: +BSS (NA/CA/MG/K) BALANCED SALT SOLUTION OPHTH SOLN 15 ML BOTTLE OD ONE; -BSS (NA/CA/MG/K) BALANCED SALT SOLUTION OPHTH SOLN 15 ML BOTTLE OS ONE; -CYCLOPENTOLATE HCL 1% OPHTH SOLN 2 ML BOTTLE OP SCH; -KETOROLAC TROMETHAMINE 0.5% EYE DROP 1 DROP DROPS OP SCH; -OFLOXACIN 0.3% OPHTHALMIC SOLUTION 5 ML BOTTLE OP SCH; -PHENYLEPHRINE 2.5% OPHTH SOLN 15 ML BOTTLE OP SCH; +POVIDONE-IODINE 5% OPHTHALMIC PREP 30 ML SOLUTION OD ONE; -POVIDONE-IODINE 5% OPHTHALMIC PREP 30 ML SOLUTION OS ONE; -TROPICAMIDE 1% OPHTH SOLN 15 ML BOTTLE OP SCH; +VANCOMYCIN 500 MG VIAL (RESTRICTED TO ID ONLY) IVPB ONE
[2023-07-21] MEDS ORDERED: LIDOCAINE HCL/PF 1% SDV 5ML VIAL ONE (07:12)
[2023-07-21] MEDS ORDERED: POVIDONE-IODINE 5% OPHTHALMIC PREP 30 ML SOLUTION ONE (07:26)
[2023-07-21] MEDS ORDERED: TETRACAINE 0.5% OPHTH SOLN 2 ML BOTTLE ONE (07:26)
[2023-07-21] MEDS ORDERED: PHENYLEPHRINE 2.5% OPTHALMIC DROP 2ML BOTTLE ONE (09:07)
[2023-07-21] MEDS ORDERED: TROPICAMIDE 1% OPHTH SOLN 15 ML BOTTLE ONE (09:07)
[2023-07-21] MEDS ORDERED: CYCLOPENTOLATE HCL 1% OPHTH SOLN 2 ML BOTTLE ONE (09:07)
[2023-07-21] MEDS ORDERED: KETOROLAC TROMETHAMINE 0.5% EYE DROP 1 DROP DROPS ONE (09:07)
[2023-07-21] MEDS ORDERED: OFLOXACIN 0.3% OPHTHALMIC SOLUTION 5 ML BOTTLE ONE (09:08)
[2023-07-21] MEDS: OFLOXACIN 0.3% OPHTHALMIC SOLUTION 5 ML BOTTLE OP SCH ×3 (09:30→09:40)
[2023-07-21] MEDS: CYCLOPENTOLATE HCL 1% OPHTH SOLN 2 ML BOTTLE OP SCH ×3 (09:30→09:40)
[2023-07-21] MEDS: TROPICAMIDE 1% OPHTH SOLN 15 ML BOTTLE OP SCH ×3 (09:30→09:40)
[2023-07-21] MEDS: PHENYLEPHRINE 2.5% OPHTH SOLN 15 ML BOTTLE OP SCH ×3 (09:30→09:40)
[2023-07-21] MEDS: KETOROLAC TROMETHAMINE 0.5% EYE DROP 1 DROP DROPS OP SCH ×3 (09:30→09:40)
[2023-07-21 09:39] VITALS: RESP 20
[2023-07-21] MEDS ORDERED: ONDANSETRON 4 MG/2 ML VIAL ONE (11:13)
[2023-07-21] MEDS ORDERED: LABETALOL HCL 20 MG/4 ML VIAL ONE (11:13)
[2023-07-21] MEDS ORDERED: MIDAZOLAM HCL 2 MG/2 ML SINGLE DOSE VIAL ONE (11:13)
[2023-07-21] MEDS ORDERED: TETRACAINE 0.5% OPHTH SOLN 2 ML BOTTLE TP ONE (11:19)
[2023-07-21] MEDS ORDERED: POVIDONE-IODINE 5% OPHTHALMIC PREP 30 ML SOLUTION OD ONE (11:21)
[2023-07-21] MEDS ORDERED: BSS (NA/CA/MG/K) BALANCED SALT SOLUTION OPHTH SOLN 15 ML BOTTLE OD ONE (11:29)
[2023-07-21] MEDS ORDERED: CHONDROITIN SU A/HYALUR SOD 1 KIT IO ONE (11:30)
[2023-07-21] MEDS ORDERED: LIDOCAINE HCL 1% PRESERVATIVE FREE - 30ML VIAL IO ONE (11:30)
[2023-07-21] MEDS ORDERED: EPINEPHrine/PF 1 MG/1 ML (1:1,000) AMPULE SQ ONE (11:37)
[2023-07-21] MEDS ORDERED: VANCOMYCIN 500 MG VIAL (RESTRICTED TO ID ONLY) IVPB ONE (11:47)
[2023-07-21 13:06] VITALS: BP 169/72; PULSE 63; TEMP 97.5
== END 2023-07-21 13:05 | disposition home or self-care (01) ==
LOC: JASU-SURG 04:58
PROVIDERS: ATTEND Ophthalmology
PROC: 08RJ3JZ Replacement of Right Lens with Synthetic Substitute, Percutaneous Approach (ICD-10-PCS; principal; 2023-07-21 11:00)
DX: H26.9 Unspecified cataract (principal)
CPT/HCPCS: 66984; V2632

== ENCOUNTER 2023-08-16 07:27 | Day surgery (SDC) | payer OTHER ==
[2023-08-09 16:59] VITALS: BMI 32.9
[~2023-08-16 07:27] MED LIST changes: -ACETAMINOPHEN 325 MG TABLET (FP) PO PRN; -BSS (NA/CA/MG/K) BALANCED SALT SOLUTION OPHTH SOLN 15 ML BOTTLE OD ONE; +BUPIVICAINE 0.25%/MORPH PF/KETOROLAC - 51ML DISP.SYRINGE IA ONE; -CHONDROITIN SU A/HYALUR SOD 1 KIT IO ONE; -EPINEPHrine/PF 1 MG/1 ML (1:1,000) AMPULE SQ ONE; -LIDOCAINE HCL 1% PRESERVATIVE FREE - 30ML VIAL IO ONE; -POVIDONE-IODINE 5% OPHTHALMIC PREP 30 ML SOLUTION OD ONE; -TETRACAINE 0.5% OPHTH SOLN 2 ML BOTTLE TP ONE; -VANCOMYCIN 500 MG VIAL (RESTRICTED TO ID ONLY) IVPB ONE
[2023-08-16] MEDS ORDERED: VANCOMYCIN 1,000 MG VIAL (RESTRICTED TO ID ONLY) ONE (07:37)
[2023-08-16] MEDS ORDERED: CEFAZOLIN 2 GM in DEXTROSE 5%-WATER - 50 ML IVPB ONE (08:00)
[2023-08-16] MEDS ORDERED: MIDAZOLAM HCL 2 MG/2 ML SINGLE DOSE VIAL ONE (08:51)
[2023-08-16] MEDS ORDERED: FENTANYL CITRATE/PF 50 MCG/ML VIAL ONE (08:51)
[2023-08-16] MEDS ORDERED: SODIUM CHLORIDE 0.9% P/F 10 ML VIAL IJ ONE ×2 (08:52→09:00)
[2023-08-16] MEDS ORDERED: ROPIVACAINE HCL 0.5% 30ML VIAL ONE (08:52)
[2023-08-16] MEDS ORDERED: DEXAMETHASONE SOD PHOSPHATE/PF 10 MG/ML SDV ONE (08:52)
[2023-08-16] MEDS ORDERED: BUPIVACAINE HCL/PF 0.5% (5MG/ML) 10 ML VIAL ONE (08:52)
[2023-08-16] MEDS ORDERED: TRANEXAMIC ACID 1000 MG/10 ML VIAL IVPUSH ONE (09:00)
[2023-08-16] MEDS ORDERED: PROPOFOL 20 ML ONE (09:42)
[2023-08-16] MEDS ORDERED: ePHEDrine SULFATE 50 MG/1 ML AMPULE ONE (09:52)
[2023-08-16] MEDS ORDERED: BUPIVICAINE 0.25%/MORPH PF/KETOROLAC - 51ML DISP.SYRINGE IA ONE ×2 (11:35→12:00)
[2023-08-16] MEDS ORDERED: VANCOMYCIN 1,000 MG VIAL (RESTRICTED TO ID ONLY) IVPB ONE (11:50)
[2023-08-16] MEDS ORDERED: oxyCODONE HCL 5 MG TABLET PO PRN (13:01)
[2023-08-16] MEDS ORDERED: MAG HYDROX/AL HYDROX/SIMETH 30 ML UNIT-DOSE CUP PO PRN (13:03)
[2023-08-16] MEDS ORDERED: MAGNESIUM HYDROX 2400MG/30ML ORAL SUSPENSION 30 ML CUP PO PRN (13:03)
[2023-08-16] MEDS ORDERED: GABAPENTIN 300 MG CAPSULE PO PRN (13:08)
[2023-08-16] MEDS: ACETAMINOPHEN 1000 MG/100 ML BAG IVPB ONE ×2 (13:10→20:28)
[2023-08-16] MEDS: LACTATED RINGERS SOLUTION 1,000 ML IV SCH (15:00)
[2023-08-16] MEDS: oxyCODONE HCL 5 MG TABLET PO PRN ×2 (17:49→20:33)
[2023-08-16] MEDS: CEFAZOLIN SODIUM 2 GM in DEXTROSE 5%-WATER 100 ML IVPB SCH (17:52)
[2023-08-16] MEDS: ACETAMINOPHEN 500 MG TABLET (FP) PO SCH (19:18)
[2023-08-16] MEDS ORDERED: VANCOMYCIN 1,000 MG in DEXTROSE 5%-WATER - 250 ML IVPB ONE (22:00)
[2023-08-16] MEDS: SENNOSIDES/DOCUSATE COMBO (SENNA PLUS) TABLET (UD) PO SCH (22:07)
[2023-08-16] MEDS ORDERED: VANCOMYCIN/WATER FOR INJ (PEG) 1,000 MG/200 ML BAG IVPB ONE (23:00)
[2023-08-17] MEDS: CEFAZOLIN SODIUM 2 GM in DEXTROSE 5%-WATER 100 ML IVPB SCH ×2 (01:54→09:30)
[2023-08-17] MEDS: oxyCODONE HCL 5 MG TABLET PO PRN (02:01)
[2023-08-17] MEDS: ACETAMINOPHEN 500 MG TABLET (FP) PO SCH ×4 (02:02→20:20)
[2023-08-17] MEDS: LEVOTHYROXINE NA 125 MCG TABLET (FP) PO SCH (06:37)
[2023-08-17 08:12] LABS: HEMATOCRIT 26.4 % (32.4-45.2); HEMOGLOBIN 8.3 G/dL (10.7-15.3); MCH 28.5 pg (25.7-33.7); MCHC 31.3 g/dl (32.0-36.0); MEAN CELL VOLUME 91.2 fl (80-96); MEAN PLT VOLUME 10.5 fl (7.5-11.1); RBC 2.89 10^6/uL (3.60-5.2); RDW 15.8 % (11.6-15.6); WHITE BLOOD COUNT 9.5 10^3/uL (4.0-10.8)
[2023-08-17] MEDS: ENOXAPARIN NA (PORCINE) 40 MG/0.4 ML DISP.SYRIN SQ SCH (09:30)
[2023-08-17] MEDS: ONDANSETRON 4 MG/2 ML VIAL IVPUSH PRN (09:30)
[2023-08-17] MEDS: PANTOPRAZOLE 40 MG TABLET PO SCH (09:30)
[2023-08-17 09:48] LABS: CALCIUM 8.5 mg/dl (8.5-10.1); CREATININE 0.6 mg/dl (0.6-1.3); POTASSIUM 4.6 mmol/L (3.5-5.1)
[2023-08-17] MEDS: SENNOSIDES/DOCUSATE COMBO (SENNA PLUS) TABLET (UD) PO SCH ×2 (10:24→21:59)
[2023-08-17] MEDS: amLODIPine BESYLATE 5 MG TABLET (FP) PO SCH (10:24)
[2023-08-17] MEDS: MULTIVITAMINS (DAILY MVI) TABLET (FP) PO SCH (10:24)
[2023-08-17] MEDS: LACTATED RINGERS SOLUTION 1,000 ML IV SCH (20:21)
[2023-08-18] MEDS: ACETAMINOPHEN 500 MG TABLET (FP) PO SCH ×3 (01:37→14:33)
[2023-08-18] MEDS: LEVOTHYROXINE NA 125 MCG TABLET (FP) PO SCH (06:31)
[2023-08-18] MEDS: oxyCODONE HCL 5 MG TABLET PO PRN (06:32)
[2023-08-18 08:00] LABS: HEMATOCRIT 22.8 % (32.4-45.2); HEMOGLOBIN 7.1 G/dL (10.7-15.3); MCH 28.6 pg (25.7-33.7); MCHC 31.1 g/dl (32.0-36.0); MEAN PLT VOLUME 10.5 fl (7.5-11.1); PLATELET COUNT 128.9 10^3/uL (134-434); RBC 2.48 10^6/uL (3.60-5.2); WHITE BLOOD COUNT 9.1 10^3/uL (4.0-10.8)
[2023-08-18 08:55] LABS: CALCIUM 8.2 mg/dl (8.5-10.1); CREATININE 0.6 mg/dl (0.6-1.3); POTASSIUM 3.7 mmol/L (3.5-5.1)
[2023-08-18 09:11] VITALS: RESP 16
[2023-08-18] MEDS: SENNOSIDES/DOCUSATE COMBO (SENNA PLUS) TABLET (UD) PO SCH (10:04)
[2023-08-18] MEDS: ENOXAPARIN NA (PORCINE) 40 MG/0.4 ML DISP.SYRIN SQ SCH (10:04)
[2023-08-18] MEDS: PANTOPRAZOLE 40 MG TABLET PO SCH (10:04)
[2023-08-18] MEDS: MULTIVITAMINS (DAILY MVI) TABLET (FP) PO SCH (10:04)
[2023-08-18] MEDS: amLODIPine BESYLATE 5 MG TABLET (FP) PO SCH (10:05)
[2023-08-18] MEDS ORDERED: amLODIPine BESYLATE 5 MG TABLET (FP) PO SCH (11:00)
[2023-08-18] MEDS: ONDANSETRON 4 MG/2 ML VIAL IVPUSH PRN (12:12)
[2023-08-18 14:39] VITALS: BP 107/56; PULSE 69; TEMP 98.1
== END 2023-08-18 19:02 | disposition home or self-care (01) ==
LOC: FASUSAT 07:27 → FM/S 14:17 → FASUSAT 08-18 19:02
PROVIDERS: ATTEND Internal Medicine
PROC: 8E0Y0CZ Robotic Assisted Procedure of Lower Extremity, Open Approach (ICD-10-PCS; 2023-08-16)
PROC: 0SR90JA Replacement of Right Hip Joint with Synthetic Substitute, Uncemented, Open Approach (ICD-10-PCS; principal; 2023-08-16 10:05)
DX: M16.11 Unilateral primary osteoarthritis, right hip (principal)
CPT/HCPCS: 20985; 27130; C1776; S2900; 36415; 73502-TC-RT-FY; 80048; 85027; 88305-TC; 88311-TC; 94760; 97010-GP; 97116-GP; 97161-GP; C1713; C1889